=== PATIENT | female | born 1965 ===

== ENCOUNTER 2017-08-28 00:48 | Inpatient (IN) | payer MEDICAID, MEDICARE ==
[2017-08-28 00:48] VITALS: BMI 35.0
[2017-08-28 01:57] LABS: BASO # 0.1 K/uL (0.0-0.2); BASO % 0.4 % (0.0-2.0); EOS # 0.3 K/uL (0.0-0.7); EOS % 1.6 % (0.0-4.0); HEMATOCRIT 43.7 % (34.0-47.0); MEAN CELL VOLUME 97.6 fl (81.0-99.0); MEAN CORPUSCULAR HEMOGLOBIN 32.3 pg (27.0-31.0); MEAN PLATELET VOLUME 7.7 fl (7.2-11.7); MONO # 1.3 K/uL (0.0-0.8); NEUT # 7.7 K/uL (1.8-7.0); WHITE BLOOD COUNT 16.3 K/uL (4.8-10.8)
[2017-08-28 02:03] LABS: ALCOHOL SERUM 215 mg/dl (0-10); ALKALINE PHOSPHATASE 152 U/L (38-126); ALT/SGPT 66 U/L (9-52); AST/SGOT 53 U/L (14-36); BILIRUBIN,TOTAL 0.5 mg/dl (0.2-1.3); BLOOD UREA NITROGEN 15 mg/dl (7-17); CALCIUM 9.3 mg/dL (8.4-10.2); CARBON DIOXIDE 24 mmol/L (22-30); CHLORIDE 99 mmol/L (98-107); GFR AFRICAN-AMERICAN > 60; GLUCOSE,RANDOM 130 mg/dL (65-105); POTASSIUM 3.1 MMOL/L (3.6-5.0); SODIUM 139 mmol/l (132-148); TOTAL PROTEIN 8.4 G/DL (6.3-8.2)
[2017-08-28 02:04] LABS: ALB/GLOB RATIO 1.3 (1.0-2.1)
[2017-08-28 02:06] LABS: PARTIAL THROMBOPLASTIN TIME 28.7 Seconds (25.6-37.1)
--- NOTE | 2017-08-28 02:38 | ED PDOC ---
HPI: Psych/Substance Abuse Time Seen by Provider: 08/28/17 00:51 Chief Complaint (Nursing): Psychiatric Evaluation Chief Complaint (Provider): Depression and Drug Overdose History Per: Patient Onset/Duration Of Symptoms: Hrs (8 hours ago) Current Symptoms Are (Timing): Still Present Additional History Per: EMS Additional Complaint(s): Patient is a 52 y/o female with a past medical history of anxiety, bipolar disorder, depression, and schizophrenia, brought in by EMS, presents to the ED complaining of depression and suicidal ideation, onset of 8 hours ago. According to the EMS, they received a phone call from the patient's boyfriend after witnessing the patient hallucinate about her mother and stating that 'she would like to join her mother". In an effort to accomplish this, the patient reports of drinking approximately 18:30, while taking 5 pills of Tramadol, 5 pills of Trazodone, 6 pills of Abilify, and 6 pills of Clanazepam. Patient denies of any chest pain, nausea, vomiting, shortness of breath, cough, and fever. Of note, the nursing staff informed the provider that the patient attempted to strangle herself with the blood pressure cord shortly after coming to the ED. Past Medical History Reviewed: Historical Data, Nursing Documentation, Vital Signs Vital Signs: Last Vital Signs Temp 98.0 F 08/28/17 01:27 Pulse 121 H 08/28/17 01:27 Resp 16 08/28/17 01:27 BP 131/75 08/28/17 01:27 Pulse Ox 96 08/28/17 01:27 - Medical History PMH: Anxiety, Arthritis, Bipolar Disorder, Depression, Deep Vein Thrombosis, HTN , Hypercholesterolemia, Hyperlipidemia, Chronic Kidney Disease, Schizophrenia Denies: Colonic Polyps, Osteoporosis - Surgical History Surgical History: Endoscopy - Family History Family History: States: No Known Family Hx - Social History Current smoker - smoking cessation education provided: No Ex-Smoker (has not smoked in the last 12 months): No Alcohol: Occasional - Immunization History Hx Tetanus Toxoid Vaccination: Yes (2013) Hx Influenza Vaccination: Yes Hx Pneumococcal Vaccination: Yes - Home Medications Home Medications: Ambulatory Orders Medication Instructions Recorded Atenolol [Tenormin] 25 mg PO DAILY 12/26/16 Celecoxib [Celebrex] 200 mg PO DAILY 12/26/16 Escitalopram [Lexapro] 20 mg PO DAILY 12/26/16 Lisinopril/Hydrochlorothiazide 1 tab PO DAILY 12/26/16 [Lisinopril-Hydrochlorothiazide 25 mg-20 mg] Cyclobenzaprine [Flexeril] 10 mg PO TID 08/28/17 Losartan/Hydrochlorothiazide 1 tab PO DAILY 08/28/17 [Hyzaar 100-12.5 Tablet] Lovastatin [Altoprev] 20 mg PO HS 08/28/17 Naproxen [Naprosyn] 500 mg PO DAILY 08/28/17 Pregabalin [Lyrica] 50 mg PO BID 08/28/17 Valacyclovir HCl [Valtrex] 1 gm PO DAILY 08/28/17 - Allergies Allergies/Adverse Reactions: Allergies Allergy/AdvReac Type Severity Reaction Status Date / Time chocolate flavor Allergy Intermediate SWELLING Verified 08/28/17 01:13 Iodine and Iodide Containing Allergy Intermediate RASH Verified 08/28/17 01:13 Produc shellfish derived Allergy Intermediate RASH Verified 08/28/17 01:13 STRAWBERRIES AdvReac Intermediate SWELLING Uncoded 08/28/17 01:13 Review of Systems ROS Statement: Except As Marked, All Systems Reviewed And Found Negative Constitutional: Negative for: Fever Cardiovascular: Negative for: Chest Pain Respiratory: Negative for: Cough, Shortness of Breath Gastrointestinal: Negative for: Nausea, Vomiting, Diarrhea Neurological: Positive for: Change in Speech (Speech is slurred) Psych: Positive for: Depression, Suicidal ideation Physical Exam - Reviewed Nursing Documentation Reviewed: Yes Vital Signs Reviewed: Yes - Physical Exam Appears: Positive for: Non-toxic, No Acute Distress Head Exam: Positive for: ATRAUMATIC, NORMOCEPHALIC Skin: Positive for: Normal Color, Warm Eye Exam: Positive for: Normal appearance, EOMI, PERRL ENT: Positive for: Normal ENT Inspection Neck: Positive for: Normal, Painless ROM, Supple Cardiovascular/Chest: Positive for: Regular Rate, Rhythm. Negative for: Murmur Respiratory: Positive for: Normal Breath Sounds. Negative for: Respiratory Distress Gastrointestinal/Abdominal: Positive for: Normal Exam, Soft. Negative for: Tenderness Back: Positive for: Normal Inspection Extremity: Positive for: Normal ROM. Negative for: Pedal Edema, Deformity Neurologic/Psych: Positive for: Alert, Oriented, Other (Slurred Speech) - Laboratory Results Result Diagrams: 08/28/17 11:30 08/28/17 11:30 - ECG O2 Sat by Pulse Oximetry: 96 (RA) Pulse Ox Interpretation: Normal - Critical Care Total Time (In Min): 60 Medical Decision Making Medical Decision Making: Time: --01:28 Initial Impression: -- 52 y/o female with Overdose in setting of visual hallucinations with known bipolar disorder and alcohol abuse Initial Plan: --EKG --Drug Screen, Urine --Poison Control Consult --Crisis Evaluation --ED Urine Dipstick --Urine --Haloperidol Lactate 5m IM --lorazepam 2mg IM --Heplock Insertion --1:1 Obs for Suicide Precaution --Accucheck --Urinalysis --Restraint: Violent or harm to self/other Reassess --07:00 Patient to be signed out to Dr. Brown pending crisis evaluation. Scribe Attestation: Documented by Addy Fair acting as a scribe for Kevin Burroughs MD. Provider Attestation: All medical record entries made by the Scribe were at my direction and personally dictated by me. I have reviewed the chart and agree that the record accurately reflects my personal performance of the history, physical exam, medical decision making, and the department course for this patient. I have also personally directed, reviewed, and agree with the discharge instructions and disposition. Disposition - Clinical Impression Clinical Impression: Depression - Patient ED Disposition Is Patient to be Admitted: Transfer of Care - Disposition Disposition: Transfer of Care Disposition Time: 07:00 (Patient to be signed out to Dr. Brown pending crisis evaluation. ) Condition: FAIR
[2017-08-28] MEDS ORDERED: Sodium Chloride 0.9% 1,000 ML IV STA (03:47)
[2017-08-28 05:45] LABS: RBC URINE < 1 /hpf (0-3); URINE BACTERIA RARE (<OCC); URINE BILIRUBIN NEGATIVE (NEGATIVE); URINE BLOOD NEGATIVE (NEGATIVE); URINE COLOR YELLOW (YELLOW); URINE GLUCOSE (UA) NEG (Normal); URINE KETONE NEGATIVE (NEGATIVE); URINE LEUKOCYTE ESTERASE NEG Leu/uL (Negative); URINE PROTEIN NEGATIVE (NEGATIVE); URINE UROBILINOGEN 0.2-1.0 mg/dL (0.2-1.0); WBC URINE < 1 /hpf (0-5)
[2017-08-28] MEDS ORDERED: Potassium Chloride 20 mEq ER Tab PO ONE (07:08)
--- NOTE | 2017-08-28 07:09 | ED PDOC ---
- Laboratory Results Result Diagrams: 08/28/17 11:30 08/28/17 11:30 - ECG O2 Sat by Pulse Oximetry: 96 (RA) Pulse Ox Interpretation: Normal Medical Decision Making Medical Decision Makin:00 Patient signed over from Kevin Burroughs MD to me pending Crisis Evaluation. Scribe Attestation: Documented by Gabriella Slaughter, acting as a scribe for Cortez Brown MD. Medically stable for psychiatric admission Provider Scribe Attestation: All medical record entries made by the Scribe were at my direction and personally dictated by me. I have reviewed the chart and agree that the record accurately reflects my personal performance of the history, physical exam, medical decision making, and the department course for this patient. I have also personally directed, reviewed, and agree with the discharge instructions and disposition. Disposition - Clinical Impression Clinical Impression: Depression - POA Present On Arrival: None - Disposition Disposition: Admitted as In-Patient Disposition Time: 12:13 Condition: FAIR Forms: [employer] ([place]uan)
--- NOTE | 2017-08-28 10:30 | RAD ---
HISTORY: cough COMPARISON: No prior. FINDINGS: LUNGS: No active pulmonary disease. PLEURA: No significant pleural effusion identified, no pneumothorax apparent. CARDIOVASCULAR: Normal. OSSEOUS STRUCTURES: No significant abnormalities. VISUALIZED UPPER ABDOMEN: Normal. OTHER FINDINGS: None. IMPRESSION: No active disease.
[2017-08-28 11:42] LABS: BASO # 0.1 K/uL (0.0-0.2); BASO % 0.8 % (0.0-2.0); EOS # 0.2 K/uL (0.0-0.7); EOS % 2.2 % (0.0-4.0); HEMATOCRIT 40.2 % (34.0-47.0); LYMPH # 2.4 K/uL (1.0-4.3); LYMPH % 24.7 % (20.0-40.0); MEAN CORPUSCULAR HEMOGLOBIN 32.6 pg (27.0-31.0); MEAN CORPUSCULAR HGB CONC 34.2 g/dL (33.0-37.0); MEAN PLATELET VOLUME 7.5 fl (7.2-11.7); MONO # 0.8 K/uL (0.0-0.8); MONO % 7.7 % (0.0-10.0); NEUT # 6.4 K/uL (1.8-7.0); NEUT % 64.6 % (50.0-75.0); NRBC % 0.1 % (0.0-0.0); RED CELL DISTRIBUTION WIDTH 15.1 % (11.5-14.5); WHITE BLOOD COUNT 9.8 K/uL (4.8-10.8)
[2017-08-28 11:47] LABS: MEAN CELL VOLUME 95.3 fl (81.0-99.0)
[2017-08-28 11:56] LABS: ALB/GLOB RATIO 1.3 (1.0-2.1); ALCOHOL SERUM < 10 mg/dl (0-10); ALKALINE PHOSPHATASE 139 U/L (38-126); ALT/SGPT 59 U/L (9-52); AST/SGOT 51 U/L (14-36); BILIRUBIN,TOTAL 0.8 mg/dl (0.2-1.3); BLOOD UREA NITROGEN 11 mg/dl (7-17); CALCIUM 8.8 mg/dL (8.4-10.2); CARBON DIOXIDE 24 mmol/L (22-30); CHLORIDE 103 mmol/L (98-107); GFR AFRICAN-AMERICAN > 60; GLUCOSE,RANDOM 109 mg/dL (65-105); POTASSIUM 3.8 MMOL/L (3.6-5.0); SODIUM 138 mmol/l (132-148); TOTAL PROTEIN 7.5 G/DL (6.3-8.2)
--- NOTE | 2017-08-28 12:43 | CARD ---
APPROVED REPORT EKG Measurement Heart [id number] <Conclusion> Sinus tachycardia Inferior infarct, age undetermined Cannot rule out Anterior infarct, age undetermined Abnormal ECG
--- NOTE | 2017-08-28 12:43 | CARD ---
APPROVED REPORT EKG Measurement Heart [id number] <Conclusion> Normal sinus rhythm Inferior infarct, age undetermined Abnormal ECG
--- NOTE | 2017-08-28 17:36 | PCM.BM ---
<Alida Smith - Last Filed: 08/28/17 17:36> Treatment Plan Problems - Problems identified on initial assessmt Feelings of Worthlessness Date Initiated: 08/28/17 Time Initiated: 17:34 Assessment reference: NA Status: Active Problem 1 Date Initiated: 08/28/17 Time Initiated: 17:33 Assessment reference: NA Status: Active Treatment assets and liabiliti Patient Assests: adapts well, cooperative, insightful, motivated, resourceful, self-reliant, ADL independent, negotiates basic needs Patient Liabilities: financial problems, poor support system, relationship conflicts - Milieu Protocol Maintain good personal hygiene: daily Encourage regular showers, daily Remind patient to perform daily oral care, daily Assist patient to perform ADL's Conduct patient checks and document Observation sheet: 1:1 Maintain personal safety: every shift Educate patient to report safety concerns to staff, every shift Monitor environment for contraband/sharps Medication safety: Monitor for expected outcome, potential side effects: every shift, Assess barriers to learning: every shift, Assess readiness for medication education: every shift <Jared Brice - Last Filed: 08/29/17 17:11> Family Contact Family involvement: Family/SO is involved Family contact: Patient agrees to contact, Family has been contacted by patient , Telephone contact initiated by staff Family contact name: Arnaud Mejias - [phone] Family contacted how many times per week?: 4 Family contact comment: Space Operations Officer spoke to pt's domestic partner who reported "I don't remember" when asked how pt was doing prior to admission. - Outside Agency Agency 1 Care involvment: Not involved Agency contact name: Dr. Kim Cardona Agency contact number: - Goals for Treatment Patient goals for treatment: Pt would like to be switched to medications that resolve her symptoms as she no longer feels she can continue living if the hallucinations do not go away. Patient's family/SO goals for treatment: Pt's significan other, Arnaud Mejias, did not offer any goals for pt's treatment. Discharge/Continuing Care - Education Needs Education Needs: Patient Medication, Patient Diagnosis/Disease Process, Patient Coping Skills, Patient Community resources, Patient Aftercare Safety Plan - Discharge Discharge Criteria: Tolerates medication w/o severe side effects, Free of Suicidal thoughts, Free of paranoid thoughts, Free of agitation, Normal sleep pattern, Reduction of target symptoms Discharge to:: Home, With Family - Treatment Team Participation Discussed with Family/SO: Yes <LeslieMarian - Last Filed: 08/30/17 16:12> Family Contact - Goals for Treatment Patient goals for treatment: Patient to continue stabilization on 3NP through medication management and group/supportive therapy. Patient to be encouraged to attend groups regularly to promote self-awareness, compliance, and improve insight, coping skills and self-esteem. Patient to be provided with referral for appropriate level of aftercare to reduce risk of future hospitalizations and ensure safety in the community. Discharge/Continuing Care - Treatment Team Participation Patient/Family/SO Statement: 08/30/17 16:13 Patient attended tx team this morning and was able to participate in discussions regarding progress on 3NP and tx goals. patient continues to reports auditory/visual hallucinations of her mother and sister. Patient repeatedly stated "I want to go with them and enjoy them." Patient was tearful through-out tx team, stating "I don't want to be here." Patient expressed suicidal ideations, explaining having her blanket wrapped around her on 08/29 and having thoughts of typing it around her neck. Patient wasn't able to contract for safety on 3NP, replying "if i could, i would" when asked if she would attempt to harm herself on 3NP. Patient presents with limited insight. Coping skills/Judgment impaired. Patient unable to identify protective factors without assistance from tx team. Was Patient/Family/SO present at Treatment Team Meeting: No <Boom Stahl - Last Filed: 08/31/17 13:03> Treatment Plan Problems - Problems identified on initial assessmt Feelings of Worthlessness Date Initiated: 08/28/17 Time Initiated: 17:34 Assessment reference: NA Status: Active Problem 1 Date Initiated: 08/28/17 Time Initiated: 17:33 Assessment reference: NA Status: Active Problem 2 Date Initiated: 08/28/17 Time Initiated: 17:33 Assessment reference: NA Status: Active - Diagnosis (1) Depression Status: Acute Interventions: psychotherapy, pharmacotherapy 08/31/17 13:02
[2017-08-28] MEDS ORDERED: Alum-Mag Hydrox-Simethicone Susp (30 mL) PO PRN (18:02)
[2017-08-28] MEDS ORDERED: DiphenhydrAMINE 50 mg/ml Inj IM PRN (18:02)
[2017-08-28] MEDS ORDERED: Magnesium Hydroxide Susp 30 ml UD PO PRN (18:02)
[2017-08-29 02:03] VITALS: O2SAT 96
[2017-08-29 09:26] LABS: T4 12.2 ug/dl (5.5-11.0)
[2017-08-29 09:41] LABS: THYROID STIMULATING HORMONE 2.27 mIU/ML (0.46-4.68)
--- NOTE | 2017-08-29 12:05 | PCM.PSYCH ---
Initial Psychiatric Evaluation - Initial Psychiatric Evaluation Type of Admission: Voluntary Chief Complaint (in patient's own words): i was suicidal Patient's Reaction to Hospitalization: pt is upset History of Present Illness and Precipitating Events: This is a 52 yr old female with h/o depression and psychosis and has h/o multiple suicidal atempts and admitted for severe depression and overdose on trazodone and tylenol.pt says that she misses her mother and sister very much and hearing the voices of mother and sister telling her to join them Current Medications: Active Medications Generic Name Dose Route Start Last Admin Trade Name Freq PRN Reason Stop Dose Admin Acetaminophen 650 mg 08/28/17 18:02 08/28/17 19:53 Tylenol 325mg Tab PO 650 mg Q4 PRN Administration Pain, moderate (4-7) Al Hydrox/Mg Hydrox/Simethicone 30 ml 08/28/17 18:02 Maalox Plus 30 Ml PO Q4 PRN Dyspepsia Diphenhydramine HCl 50 mg 08/28/17 18:02 Benadryl IM Q6 PRN Extrapyramidal S/S Unable PO Diphenhydramine HCl 50 mg 08/28/17 18:02 08/29/17 08:08 Benadryl PO 50 mg Q6 PRN Administration Extrapyramidal Symptoms Haloperidol 5 mg 08/28/17 18:02 08/29/17 08:08 Haldol PO 5 mg Q4 PRN Administration Agitation Haloperidol Lactate 5 mg 08/28/17 18:02 Haldol IM Q4 PRN Agitation, Unable to Take PO Ibuprofen 400 mg 08/28/17 19:37 08/28/17 21:46 Motrin Tab PO 400 mg Q6 PRN Administration Pain, moderate (4-7) Lorazepam 2 mg 08/28/17 18:02 08/29/17 08:08 Ativan PO 2 mg Q4 PRN Administration Anxiety/Agitation Magnesium Hydroxide 30 ml 08/28/17 18:02 Milk Of Magnesia PO HS PRN Constipation Past Psychiatric History - Past Psychiatric History Previous Treatment History: Inpatient At [facility]: multiple admissions because of overdose on pills Nature of Treatment: for depresion History of Abuse: pt denies History of ETOH/Drug Use: pt drinks occasionally History of Family Illness: pt denies Pertinent Medical Hx (Current Medical&Sleep Prob, Allergies): Allergies Allergy/AdvReac Type Severity Reaction Status Date / Time chocolate flavor Allergy Intermediate SWELLING Verified 08/28/17 01:13 Iodine and Iodide Containing Allergy Intermediate RASH Verified 08/28/17 01:13 Produc shellfish derived Allergy Intermediate RASH Verified 08/28/17 01:13 STRAWBERRIES AdvReac Intermediate SWELLING Uncoded 08/28/17 01:13 Atenolol [Tenormin] 25 mg PO DAILY 12/26/16 Celecoxib [Celebrex] 200 mg PO DAILY 12/26/16 Escitalopram [Lexapro] 20 mg PO DAILY 12/26/16 Lisinopril/Hydrochlorothiazide [Lisinopril-Hydrochlorothiazide 25 mg-20 mg] 1 tab PO DAILY 12/26/16 Cyclobenzaprine [Flexeril] 10 mg PO TID 08/28/17 Losartan/Hydrochlorothiazide [Hyzaar 100-12.5 Tablet] 1 tab PO DAILY 08/28/17 Lovastatin [Altoprev] 20 mg PO HS 08/28/17 Naproxen [Naprosyn] 500 mg PO DAILY 08/28/17 Pregabalin [Lyrica] 50 mg PO BID 08/28/17 Valacyclovir HCl [Valtrex] 1 gm PO DAILY 08/28/17 pt has h/o HTN,,,skin fungus infection Review of Systems - Review of Systems All systems: reviewed and no additional remarkable complaints except Mental Status Examination - Personal Presentation Personal Presentation: Looks stated age - Affect Affect: Constricted - Motor Activity Motor Activity: Calm - Reliability in Providing Information Reliability in Providing Information: Fair - Cognitive Functions Orientation: Person, Place, Situation, Time Sensorium: Alert Attention/Concentration: Easily distracted Abstract Thinking: As evidence by literal perception of proverbs Estimate of Intelligence: Average Judgement: Imparied, as evidence by: Poor judgement, Imparied, as evidence by: Lack of insight into illness Memory: Recent intact, as evidence by: Ability to recall events of the day, Remote intact, as evidenced by: Ability to recall historical events - Risk Risk: Suicidal, Diminished functioning - Strength & Assets Inventory Strength & Assets Inventory: Family support DSM 5 DX - DSM 5 DSM 5 Diagnosis: major depression,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 will maintain pt on 1:1 observation medical consult for follow up on pain issues and other medical problems
--- NOTE | 2017-08-29 12:33 | CP.PCM.CON ---
History of Present Illness - History of Present Illness History of Present Illness: cc: Patient medicated after agitation, unable to participate in interview/exam. HPI: PATIENT 52 YEAR OLD FEMALE, ADMITTED FOR SEVERE DEPRESSION AND SUICIDE ATTEMPT. OVERDOSE TRAZODONE AND TYLENOL. HD STABLE. ROS: UNABLE TO OBTAIN, MEDICATION Past Patient History - Infectious Disease Hx of Infectious Diseases: None - Past Medical History & Family History Past Medical History?: Yes - Past Social History Alcohol: Occasional - CARDIAC Hx Hypercholesterolemia: Yes Hx Hypertension: Yes - PULMONARY Hx Respiratory Disorders: No Hx Tuberculosis: No - NEUROLOGICAL Hx Neurological Disorder: No HX Cerebrovascular Accident: No Hx Seizures: No - HEENT Hx HEENT Problems: Yes Other/Comment: INFECTION EYELID LEFT EYE; ON ANTIBIOTIC CREAM AND DROPS. - RENAL Hx Chronic Kidney Disease: Yes - ENDOCRINE/METABOLIC Hx Endocrine Disorders: No - HEMATOLOGICAL/ONCOLOGICAL Hx Blood Disorders: No Hx Cancer: No Hx Human Immunodeficiency Virus (HIV): No - INTEGUMENTARY Hx Dermatological Problems: Yes Other/Comment: FUNGAL INFECTION SUPRAPUBIC AND UNDER BOTH BREASTS; ON NYSTATIN CREAM. - MUSCULOSKELETAL/RHEUMATOLOGICAL Hx Arthritis: Yes Hx Osteoporosis: No - GASTROINTESTINAL Hx Gastrointestinal Disorders: No - GENITOURINARY/GYNECOLOGICAL Hx Genitourinary Disorders: No Hx Sexually Transmitted Disorders: No - PSYCHIATRIC Hx Anxiety: Yes Hx Bipolar Disorder: Yes Hx Depression: Yes Hx Schizophrenia: Yes - SURGICAL HISTORY Hx Surgeries: Yes Other/Comment: r and l hip surgery, 2010 and - ANESTHESIA Hx Anesthesia: Yes Hx Anesthesia Reactions: No Hx Malignant Hyperthermia: No Meds Allergies/Adverse Reactions: Allergies Allergy/AdvReac Type Severity Reaction Status Date / Time chocolate flavor Allergy Intermediate SWELLING Verified 08/28/17 01:13 Iodine and Iodide Containing Allergy Intermediate RASH Verified 08/28/17 01:13 Produc shellfish derived Allergy Intermediate RASH Verified 08/28/17 01:13 STRAWBERRIES AdvReac Intermediate SWELLING Uncoded 08/28/17 01:13 - Medications Medications: Current Medications Acetaminophen (Tylenol 325mg Tab) 650 mg PO Q4 PRN PRN Reason: Pain, moderate (4-7) Last Admin: 08/28/17 19:53 Dose: 650 mg Al Hydrox/Mg Hydrox/Simethicone (Maalox Plus 30 Ml) 30 ml PO Q4 PRN PRN Reason: Dyspepsia Aripiprazole (Abilify) 5 mg PO DAILY SITA Diphenhydramine HCl (Benadryl) 50 mg IM Q6 PRN PRN Reason: Extrapyramidal S/S Unable PO Diphenhydramine HCl (Benadryl) 50 mg PO Q6 PRN PRN Reason: Extrapyramidal Symptoms Last Admin: 08/29/17 08:08 Dose: 50 mg Fluoxetine HCl (Prozac) 10 mg PO HS SITA Haloperidol (Haldol) 5 mg PO Q4 PRN PRN Reason: Agitation Last Admin: 08/29/17 08:08 Dose: 5 mg Haloperidol Lactate (Haldol) 5 mg IM Q4 PRN PRN Reason: Agitation, Unable to Take PO Ibuprofen (Motrin Tab) 400 mg PO Q6 PRN PRN Reason: Pain, moderate (4-7) Last Admin: 08/28/17 21:46 Dose: 400 mg Lorazepam (Ativan) 2 mg PO Q4 PRN PRN Reason: Anxiety/Agitation Last Admin: 08/29/17 08:08 Dose: 2 mg Magnesium Hydroxide (Milk Of Magnesia) 30 ml PO HS PRN PRN Reason: Constipation Physical Exam - Constitutional Additional comments: pt sedated, unable to obtain consent for physical exam. Results - Vital Signs Recent Vital Signs: Last Vital Signs Temp 96.3 F L 08/29/17 10:00 Pulse 91 H 08/29/17 10:00 Resp 20 08/29/17 10:00 BP 144/94 H 08/29/17 10:00 Pulse Ox 96 08/29/17 02:03 - Labs Result Diagrams: 08/28/17 11:30 08/28/17 11:30 Labs: Laboratory Results - last 24 hr 08/29/17 08:00 Triglycerides 261 H Cholesterol 205 H LDL Cholesterol Direct 114 HDL Cholesterol 58 Thyroxine (T4) 12.2 H TSH 3rd Generation 2.27 Assessment & Plan - Assessment and Plan (Free Text) Plan: Chart reviewed. Will continue home medications for hypertension. Per nursing staff, patient has not complained of any chest pain. EKG borderline QTc, recommend avoiding medications causing QT prolongation, including haldol, zofran. BORDERLINE QTc EKG borderline QTc, recommend avoiding medications causing QT prolongation, including haldol, zofran. HTN continue home meds DEPRESSION SUICIDE ATTEMPT management per psych
[2017-08-29] MEDS ORDERED: FLUoxetine Elix 20 MG/5 ML PO SCH (22:00)
[2017-08-30] MEDS: guaiFENesin 100 mg/5 ml Syrup UD PO PRN ×2 (10:49→21:20)
--- NOTE | 2017-08-30 14:56 | PCM.PYCHPN ---
Psychiatric Progress Note - Psychiatric Progress Note Patient seen today, length of contact: pt evaluated discussed with team chart reviewed Patient Chief Complaint: i miss my mother and sister Problems Identified/Issues Discussed: pt on evaluation tearful,sad depressed, reported continues to have visions of her mother and sister and feels she needs to join them, pt continues to have passive suicidal ideations without a plan on the unit , reported feeling hopeless and helpless recently diagnosed with cancer reported feeling anxious denied homicidal ideations denied command hallucinations Medical Problems: htn ,hyperglycemia pt reported recent diagnosis with rectal cancer DSM 5 Symptoms Update: major depression borderline persoality disorder Medication Change: Yes (increase prazac) Medical Record Reviewed: Yes Mental Status Examination - Cognitive Function Orientation: Person, Place, Situation, Time Attention: Poor Concentration: Poor Association: WNL Fund of Knowledge: Poor Decription of patient's judgement and insights: partial insight poor judgement and poor impulse control - Affect Affect: Constricted, Depressed Additional comments: terful - Speech Speech: Soft - Formal Thought Process Formal Thought Process: Hallucinations Psychotic Thoughts and Behaviors: reported non command auditory and visual hallucinations of her mother and sister - Suicidal Ideation Suicidal Ideation: No - Homicidal Ideation Homicidal Ideation: No Goal/Treatment Plan - Goal/Treatment Plan Progress Toward Problem(s) and Goals/Treatment Plan: increase prozac gradually abilify 5mg trazodone 50mg qhs ativan prn for anxiety CBT and group therapy opt at current mental status denied any suicidal ideations or plan on the unit denied command hallucinations will discontinue 1:1 observation at pt denied any suicidal thoughts or plans at current mental status
[2017-08-31] MEDS ORDERED: FLUoxetine Elix 20 MG/5 ML PO SCH (09:00)
[2017-08-31] MEDS: guaiFENesin 100 mg/5 ml Syrup UD PO PRN ×2 (10:29→16:51)
--- NOTE | 2017-08-31 13:19 | PCM.PYCHPN ---
Psychiatric Progress Note - Psychiatric Progress Note Patient seen today, length of contact: pt evaluated discussed with team chart reviewed Patient Chief Complaint: I need more therapy, i need to talk it out to feel better Problems Identified/Issues Discussed: pt on evaluation reported continues to feel down as she feels lonely with out her family, continues to see shadows of her mother and sister , pt reported that attending groups helped her to let out her emotions, pt continues to have passive suicidal ideations, without plan on the unit, reported better sleep with trazodone, denied command hallucinations, denied changes in appetite, no reported side effects of medications Medical Problems: htn ,hyperglycemia pt reported recent diagnosis with rectal cancer DSM 5 Symptoms Update: major depression severe with psychotic features borderline personality disorder Medication Change: Yes (increase prazac) Medical Record Reviewed: Yes Mental Status Examination - Cognitive Function Orientation: Person, Place, Situation, Time Attention: WNL Concentration: WNL Association: WNL Fund of Knowledge: Poor Decription of patient's judgement and insights: partial insight poor judgement and poor impulse control - Mood Mood: Depressed, Anxious - Affect Affect: Constricted, Depressed - Speech Speech: Soft - Formal Thought Process Formal Thought Process: Hallucinations, Circumstantial Psychotic Thoughts and Behaviors: reported non command auditory and visual hallucinations of her mother and sister - Suicidal Ideation Suicidal Ideation: No - Homicidal Ideation Homicidal Ideation: No Goal/Treatment Plan - Goal/Treatment Plan Need for Continued Stay: Severe depression anxiety, Discharge may exacerbated symptoms Progress Toward Problem(s) and Goals/Treatment Plan: increase prozac gradually abilify 5mg trazodone 50mg qhs ativan prn for anxiety CBT and group therapy
[2017-09-01] MEDS: guaiFENesin 100 mg/5 ml Syrup UD PO PRN ×3 (09:16→18:32)
--- NOTE | 2017-09-01 18:17 | PCM.PYCHPN ---
Psychiatric Progress Note - Psychiatric Progress Note Patient seen today, length of contact: pt evaluated discussed with team chart reviewed Patient Chief Complaint: I AM FEELING BETTER Problems Identified/Issues Discussed: pt on evaluation reported LESS DEPRESSED AND LESS ANXIOUS, STATED IMPROVED SLEEP HELPED HER MOOD, BRIGHTER AFFECT DENIED SIDE EFFECTS OF MEDICATIONS, REPORTED CLEARING OFF OF THE VISUAL AND AUDITORY HALLUCIANTIONSATTENDING GROUPS DENIED ANY CURRENT SUICIDAL AND HOMICIDAL IDEATIONS Medical Problems: htn ,hyperglycemia pt reported recent diagnosis with rectal cancer Medication Change: Yes (increase prazac) Medical Record Reviewed: Yes Mental Status Examination - Cognitive Function Orientation: Person, Place, Situation, Time Attention: WNL Concentration: WNL Association: WNL Fund of Knowledge: Poor Decription of patient's judgement and insights: partial insight poor judgement and poor impulse control - Mood Mood: Depressed, Anxious - Affect Affect: Constricted, Depressed - Speech Speech: Soft - Formal Thought Process Formal Thought Process: Circumstantial Psychotic Thoughts and Behaviors: reported CLEARING OFF OF THE auditory and visual hallucinations - Suicidal Ideation Suicidal Ideation: No - Homicidal Ideation Homicidal Ideation: No Goal/Treatment Plan - Goal/Treatment Plan Need for Continued Stay: Severe depression anxiety, Discharge may exacerbated symptoms Progress Toward Problem(s) and Goals/Treatment Plan: increase prozac gradually abilify 5mg trazodone 50mg qhs ativan prn for anxiety CBT and group therapy Estimated Date of D/C: 09/06/17
[2017-09-02] MEDS: guaiFENesin 100 mg/5 ml Syrup UD PO PRN (05:28)
--- NOTE | 2017-09-02 17:54 | PCM.PYCHPN ---
Psychiatric Progress Note - Psychiatric Progress Note Patient seen today, length of contact: pt evaluated discussed with team chart reviewed Patient Chief Complaint: I am ready to work on my problems Problems Identified/Issues Discussed: PATIENT EVALUATED , APPEARS LESS DEPRESSED AND LESS ANXIOUS, STATED IMPROVED SLEEP , BRIGHTER AFFECT DENIED SIDE EFFECTS OF MEDICATIONS, REPORTED CLEARING OFF OF THE VISUAL AND AUDITORY HALLUCIANTIONS ATTENDING GROUPS DENIED ANY CURRENT SUICIDAL AND HOMICIDAL IDEATIONS NO REPORTED SIDE EFFECTS OF MEDICATIONS Medical Problems: htn ,hyperglycemia pt reported recent diagnosis with rectal cancer Medication Change: No (increase prazac) Medical Record Reviewed: Yes Mental Status Examination - Cognitive Function Orientation: Person, Place, Situation, Time Attention: WNL Concentration: WNL Association: WNL Fund of Knowledge: Poor Decription of patient's judgement and insights: partial insight poor judgement and poor impulse control - Mood Mood: Neutral - Affect Affect: Constricted, Depressed - Speech Speech: Soft - Formal Thought Process Formal Thought Process: Circumstantial Psychotic Thoughts and Behaviors: reported CLEARING OFF OF THE auditory and visual hallucinations - Suicidal Ideation Suicidal Ideation: No - Homicidal Ideation Homicidal Ideation: No Goal/Treatment Plan - Goal/Treatment Plan Need for Continued Stay: Severe depression anxiety, Discharge may exacerbated symptoms Progress Toward Problem(s) and Goals/Treatment Plan: continue prozac 40mg abilify 5mg trazodone 50mg qhs ativan prn for anxiety CBT and group therapy Estimated Date of D/C: 09/06/17
[2017-09-03] MEDS: guaiFENesin 100 mg/5 ml Syrup UD PO PRN (03:07)
[2017-09-03 09:41] VITALS: BP 133/87; PULSE 87
[2017-09-03 12:03] VITALS: RESP 18; TEMP 97.7
--- NOTE | 2017-09-03 15:26 | PCM.PYCHDC ---
Mental Status Examination - Mental Status Examination Orientation: Person, Place, Situation, Time Memory: Intact Mood: Neutral Affect: Broad Speech: Appropriate Attention: WNL Concentration: WNL Association: WNL Fund of Knowledge: WNL Formal Thought Process: No Impairment Description of patient's judgement and insight: partial insight poor judgement and poor impulse control Psychotic Thoughts and Behaviors: pt denied any current psychotic symptoms , non ellicited Suicidal Ideation: No Current Homicidal Ideation?: No Discharge Summary - Discharge Note Reason for Hospitalization: This is a 52 yr old female with h/o depression and psychosis and has h/o multiple suicidal atempts and admitted for severe depression and overdose on trazodone and tylenol.pt says that she misses her mother and sister very much and hearing the voices of mother and sister telling her to join them Psychiatric History (includes Medical, Family, Personal Hx): for depresion Consultations:: List each consultation separately and include: 1. Reason for request. 2. Findings. 3. Follow-up Consultations: family practice Summary of Hospital Course include:: 1. Description of specific treatment plan utilized for patients during their course of treatmen. 2. Summarize the time- course for resolution of acute symptoms and/or regressed behaviors. 3. Describe issues identified and worked on during hospitalization. 4. Describe medication utilized. 5. Describe medical problems identified and treated. 6. Reassessment of suicide risk Summary of Hospital Course: pt on admission was started on prozac 10mg was uptitrated to 40mg, abilify 2mg was uptitrated to 5mg trazodone 50mg qhs for sleep CBT , group and supportive therapy was provided pt was compliant with medications, attended groups, no reported side effects on discharge mental status was stable. pt denied any suicidal or homicidal ideations denied perceptual disturbances pt to follow up at outpatient clinic - Diagnosis (1) Depression Status: Acute - Final Diagnosis (DSM 5) Condition upon Discharge: FAIR Disposition: HOME/ ROUTINE Follow-up Treatment Plan: continue prozac 40mg abilify 5mg trazodone 50mg qhs ativan prn for anxiety CBT and group therapy Prescriptions/Medication Reconciliation: ARIPiprazole [Abilify] 5 mg PO DAILY 30 Days #30 tab FLUoxetine [Prozac] 20 mg PO DAILY 30 Days #60 cap hydrOXYzine Pamoate [Vistaril] 50 mg PO HS PRN 30 Days #30 cap PRN Reason: Insomnia traZODone [Desyrel] 50 mg PO HS 30 Days #30 tab - Antipsychotic Medications Pt discharged on 2 or more routine antipsychotic medications: No
== END 2017-09-03 13:11 | disposition home or self-care (01) | DRG 885 ==
LOC: H.ER 00:48 → H.ERHOLD 12:12 → H.PSYCH 16:05
PROVIDERS: ADMIT Psychiatry & Neurology Psychiatry; ATTEND Psychiatry & Neurology Psychiatry
DX: F32.3 Major depressive disorder, single episode, severe with psychotic features (principal); R45.851 Suicidal ideations; F10.10 Alcohol abuse, uncomplicated; F60.3 Borderline personality disorder; F41.9 Anxiety disorder, unspecified

== ENCOUNTER 2017-10-21 20:14 | Inpatient (IN) | payer MEDICARE, OTHER ==
[2017-10-21 20:15] VITALS: BMI 35.0
--- NOTE | 2017-10-21 21:34 | ED PDOC ---
HPI: Psych/Substance Abuse Time Seen by Provider: 10/21/17 20:35 Chief Complaint (Nursing): Psychiatric Evaluation Chief Complaint (Provider): Suicidal Ideation and Hallucination History Per: Patient History/Exam Limitations: no limitations Onset/Duration Of Symptoms: Days (couple of days) Additional Complaint(s): Shonda Bundy, a 52 year old female presents to the Emergency Department with suicidal ideation and hallucination complaining she sees and hears her parents. Reports she wants to kill herself so she can be with her parents. She has a history of suicidal attempts and has stopped taking her medications. PMD:Myles Ramon Past Medical History Reviewed: Historical Data, Nursing Documentation, Vital Signs Vital Signs: Last Vital Signs Temp 98.6 F 10/21/17 20:24 Pulse 107 H 10/21/17 20:24 Resp 18 10/21/17 20:24 BP 153/83 H 10/21/17 20:24 Pulse Ox 98 10/21/17 20:24 - Medical History PMH: Anxiety, Arthritis, Bipolar Disorder, Depression, Deep Vein Thrombosis, HTN , Hypercholesterolemia, Hyperlipidemia, Chronic Kidney Disease, Schizophrenia Denies: Colonic Polyps, Diabetes, Hepatitis, HIV, Osteoporosis, Seizures, Sexually Transmitted Disease - Surgical History Surgical History: Endoscopy Other surgeries: bilateral hip replacement, fallopian tube - Family History Family History: States: Unknown Family Hx - Social History Alcohol: Social Drugs: Denies - Immunization History Hx Tetanus Toxoid Vaccination: Yes (2013) Hx Influenza Vaccination: Yes Hx Pneumococcal Vaccination: Yes - Home Medications Home Medications: Ambulatory Orders Medication Instructions Recorded Atenolol [Tenormin] 25 mg PO DAILY 12/26/16 Celecoxib [Celebrex] 200 mg PO DAILY 12/26/16 Escitalopram [Lexapro] 20 mg PO DAILY 12/26/16 Lisinopril/Hydrochlorothiazide 1 tab PO DAILY 12/26/16 [Lisinopril-Hydrochlorothiazide 25 mg-20 mg] Cyclobenzaprine [Flexeril] 10 mg PO TID 08/28/17 Losartan/Hydrochlorothiazide 1 tab PO DAILY 08/28/17 [Hyzaar 100-12.5 Tablet] Lovastatin [Altoprev] 20 mg PO HS 08/28/17 Naproxen [Naprosyn] 500 mg PO DAILY 08/28/17 Pregabalin [Lyrica] 50 mg PO BID 08/28/17 Valacyclovir HCl [Valtrex] 1 gm PO DAILY 08/28/17 ARIPiprazole [Abilify] 5 mg PO DAILY 30 Days #30 tab 09/03/17 Atenolol [Tenormin] 25 mg PO DAILY tab 09/03/17 FLUoxetine [Prozac] 20 mg PO DAILY 30 Days #60 cap 09/03/17 Losartan [Cozaar] 100 mg PO DAILY tab 09/03/17 guaiFENesin [Robitussin] 100 mg PO Q6 PRN udc 09/03/17 hydrOXYzine Pamoate [Vistaril] 50 mg PO HS PRN 30 Days #30 cap 09/03/17 hydroCHLOROthiazide [Hydrodiuril] 25 mg PO DAILY tab 09/03/17 traZODone [Desyrel] 50 mg PO HS 30 Days #30 tab 09/03/17 - Allergies Allergies/Adverse Reactions: Allergies Allergy/AdvReac Type Severity Reaction Status Date / Time chocolate flavor Allergy Intermediate SWELLING Verified 08/28/17 01:13 Iodine and Iodide Containing Allergy Intermediate RASH Verified 08/28/17 01:13 Produc shellfish derived Allergy Intermediate RASH Verified 08/28/17 01:13 STRAWBERRIES AdvReac Intermediate SWELLING Uncoded 08/28/17 01:13 Review of Systems ROS Statement: Except As Marked, All Systems Reviewed And Found Negative Neurological: Positive for: Altered Mental Status, Other (agitated and tearful) Psych: Positive for: Suicidal ideation, Other (hallucination) Physical Exam - Reviewed Vital Signs Reviewed: Yes - Physical Exam Appears: Positive for: Non-toxic, No Acute Distress Head Exam: Positive for: ATRAUMATIC, NORMAL INSPECTION, NORMOCEPHALIC Skin: Positive for: Normal Color, Warm, Dry Eye Exam: Positive for: Normal appearance, EOMI, PERRL ENT: Positive for: Normal ENT Inspection Neck: Positive for: Normal Cardiovascular/Chest: Positive for: Regular Rate, Rhythm. Negative for: Murmur Respiratory: Positive for: Normal Breath Sounds. Negative for: Respiratory Distress Gastrointestinal/Abdominal: Positive for: Normal Exam, Soft. Negative for: Tenderness Back: Positive for: Normal Inspection. Negative for: L CVA Tenderness, R CVA Tenderness Extremity: Positive for: Normal ROM. Negative for: Pedal Edema, Deformity Neurologic/Psych: Positive for: Alert, Oriented (x3) - Laboratory Results Result Diagrams: 10/21/17 22:09 10/21/17 22:09 - ECG O2 Sat by Pulse Oximetry: 98 (RA) Pulse Ox Interpretation: Normal Medical Decision Making Medical Decision Making: Time: 20:50 Initial Impression: Psychosis, Alcoholic Intoxication Differential Diagnosis includes but is not limited to: Medical clearance and crisis evaluation Initial Plan: --Acetaminophen --Alcohol serum --BMP --Drug Screen --Salicylate --Crisis Evaluation --Urine --Urine Dipstick --CBC --Haldol 5mg IM --Reevaluation Vital signs are stable. Labs reviewed. In my opinion there are no current acute medical conditions that contraindicate the placement of this patient in a psychiatric unit. Patient is accepted by Dr Stahl for admission. Scribe Attestation: Documented by Juliana Gardner, acting as a scribe for Layne Vidal MD Provider Scribe Attestation: All medical record entries made by the Scribe were at my direction and personally dictated by me. I have reviewed the chart and agree that the record accurately reflects my personal performance of the history, physical exam, medical decision making, and the department course for this patient. I have also personally directed, reviewed, and agree with the discharge instructions and disposition. Disposition - Clinical Impression Clinical Impression: Depression, Alcohol abuse - Patient ED Disposition Is Patient to be Admitted: Yes Counseled Patient/Family Regarding: Studies Performed, Diagnosis - Disposition Disposition Time: 22:50 Condition: FAIR - Pt Status Changed To: Hospital Disposition Of: Inpatient - Admit Certification Admit to Inpatient:: After my assessment, the patient will require hospitalization for at least two midnights. This is because of the severity of symptoms shown, intensity of services needed, and/or the medical risk in this patient being treated as an outpatient. - POA Present On Arrival: None
[2017-10-21 22:18] LABS: BASO # 0.1 K/uL (0.0-0.2); BASO % 0.7 % (0.0-2.0); EOS # 0.1 K/uL (0.0-0.7); EOS % 0.8 % (0.0-4.0); HEMOGLOBIN 12.4 g/dL (12.0-16.0); LYMPH # 3.1 K/uL (1.0-4.3); LYMPH % 26.2 % (20.0-40.0); MEAN CELL VOLUME 94.9 fl (81.0-99.0); MEAN CORPUSCULAR HEMOGLOBIN 31.9 pg (27.0-31.0); MEAN CORPUSCULAR HGB CONC 33.7 g/dL (33.0-37.0); MEAN PLATELET VOLUME 6.8 fl (7.2-11.7); MONO # 0.3 K/uL (0.0-0.8); MONO % 2.6 % (0.0-10.0); NEUT # 8.4 K/uL (1.8-7.0); NEUT % 69.7 % (50.0-75.0); RBC 3.87 Mil/uL (3.80-5.20); RED CELL DISTRIBUTION WIDTH 15.1 % (11.5-14.5)
[2017-10-21 22:33] LABS: ACETAMINOPHEN < 10.0 ug/ml (10.0-30.0); SALICYLATE < 1.0 mg/dl
[2017-10-21 22:42] LABS: BLOOD UREA NITROGEN 9 mg/dl (7-17); CALCIUM 9.3 mg/dL (8.4-10.2); GFR AFRICAN-AMERICAN > 60; GFR NON-AFRICAN AMERICAN > 60
[2017-10-21 22:59] LABS: BARBITURATES, UR NEGATIVE (NEGATIVE); BENZODIAZEPINES, UR NEGATIVE (NEGATIVE); OPIATES, UR NEGATIVE (NEGATIVE); PHENCYCLIDINE, UR NEGATIVE (NEGATIVE)
[2017-10-22 01:24] VITALS: O2SAT 97
[2017-10-22] MEDS ORDERED: Magnesium Hydroxide Susp 30 ml UD PO PRN (02:05)
[2017-10-22] MEDS ORDERED: DiphenhydrAMINE 50 mg/ml Inj IM PRN (02:05)
--- NOTE | 2017-10-22 02:26 | PCM.BM ---
Treatment Plan Problems - Problems identified on initial assessmt Hopelessness/Helplessness Date Initiated: 10/22/17 Time Initiated: 02:24 Assessment reference: NA Status: Active Treatment assets and liabiliti Patient Assests: adapts well, cooperative, insightful, motivated, resourceful, self-reliant, ADL independent, negotiates basic needs Patient Liabilities: physical pain, poor support system - Milieu Protocol Maintain good personal hygiene: daily Remind patient to perform daily oral care , every other day Encourage regular showers Conduct patient checks and document Observation sheet: Q15 minutes Maintain personal safety: every shift Educate patient to report safety concerns to staff, every shift Monitor environment for contraband/sharps Medication safety: Monitor for expected outcome, potential side effects: every shift, Assess barriers to learning: every shift, Assess readiness for medication education: every shift
--- NOTE | 2017-10-22 02:30 | PCM.BM ---
<Arun Salazar - Last Filed: 10/22/17 02:27> Treatment Plan Problems - Problems identified on initial assessmt Hopelessness/Helplessness Date Initiated: 10/22/17 Time Initiated: 02:29 Assessment reference: NA Status: Active Problem 2 Date Initiated: 10/22/17 Time Initiated: 02:28 Assessment reference: NA Status: Active Treatment assets and liabiliti Patient Assests: adapts well, cooperative, insightful, motivated, resourceful, self-reliant, ADL independent, negotiates basic needs Patient Liabilities: physical pain, poor support system, dietary restrictions - Milieu Protocol Maintain good personal hygiene: daily Remind patient to perform daily oral care , every other day Encourage regular showers Conduct patient checks and document Observation sheet: Q15 minutes Maintain personal safety: every shift Educate patient to report safety concerns to staff, every shift Monitor environment for contraband/sharps Medication safety: Monitor for expected outcome, potential side effects: every shift, Assess barriers to learning: every shift, Assess readiness for medication education: every shift <Marian Nelson - Last Filed: 10/25/17 13:56> Treatment assets and liabiliti Patient Assests: adapts well, cooperative, resourceful, self-reliant, ADL independent, good support system, negotiates basic needs, good past tx response , cognitively intact Patient Liabilities: relationship conflicts (recent losses) Discharge/Continuing Care - Treatment Team Participation Patient/Family/SO Statement: 10/25/17 13:57 Patient attended tx team this morning and was able to engage in discussion regarding progress on 3NP and aftercare. Patient presents as depressed and anxious. Patient continues to report AH/VH of sister and mother telling patient "to come be with them" and telling patient "she will be in a better place". Patient states "my sister is coming back tonight to tell me how I can be with her again." Patient expressed feeling dismissed by night staffs response to patient reporting AH/VH, stating "he just told me that no one is really there and told me to go to bed." Validation and support provided by tx team. Patient receptive to reality testing but became increasingly tearful when discussing missing her sister and being afraid of losing her elderly father. Patient reported passive thoughts to use hospital bed sheets as a way to harm herself earlier this morning. Patient was able to express being able to speak to staff about symptoms and ideations but remained vague regarding ability to contract for safety. Benefits of patient being placed on a 1:1 discussed with tx team. Patient placed on a 1:1 following tx team. Rubber Printing Machine Operator discussed benefits of referrals to PHP upon discharge to provide patient with structure, increase socialization, ensure safety in the community and reduce risk of future hospitalizations. Patient agreeable. 10/25/17 14:04 <Jared Brice - Last Filed: 10/26/17 08:24> Family Contact Family involvement: Family/SO is involved Family contact: Patient agrees to contact, Family has been contacted by patient , Telephone contact initiated by staff Family contact name: Arnaud Mejias (Significant Other) Family contacted how many times per week?: 3 Family contact comment: Rubber Printing Machine Operator spoke with pt's significant other, Arnaud Mejias ([phone]), to gain collateral and discuss pt's progress. Rubber Printing Machine Operator tried to expalin that pt appeared brighter, more motivated, and attending better to her ADL's, yet Arnaud and could not communicate due to a language barrier. Rubber Printing Machine Operator will endorse this to another clinician who can communite in [place]. - Goals for Treatment Patient goals for treatment: Pt is anxious about her supplemental insurance plan , [employer], as it does not become effective until 11/04/17. However, pt appears motivated that once this becomes active she will be able to obtain her medications and receive outpatient treament to process her thoughts and feelings and more thoroughly process the complicated grief she feels about her mother and sister. Discharge/Continuing Care - Education Needs Education Needs: Family Medication, Family Diagnosis/Disease Process, Family Coping Skills, Family Aftercare Safety Plan, Patient Medication, Patient Diagnosis/Disease Process, Patient Coping Skills, Patient Aftercare Safety Plan - Discharge Discharge Criteria: Tolerates medication w/o severe side effects, Free of Suicidal thoughts, Free of agitation, Normal sleep pattern, Reduction of target symptoms Discharge to:: Home, With Family - Treatment Team Participation Discussed with Family/SO: Yes Was Patient/Family/SO present at Treatment Team Meeting: Yes <Boom Stahl - Last Filed: 10/26/17 11:27> - Diagnosis (1) Depression Status: Acute Interventions: 10/25/17 12:33 PSYCHOTHERAPY PHARMACOTHERAPY
[2017-10-22 08:53] LABS: T4 10.5 ug/dl (5.5-11.0)
[2017-10-22] MEDS: Alum-Mag Hydrox-Simethicone Susp (30 mL) PO PRN (09:54)
--- NOTE | 2017-10-22 11:19 | CARD ---
APPROVED REPORT EKG Measurement Heart [id number] <Conclusion> Normal sinus rhythm Normal ECG
--- NOTE | 2017-10-22 14:47 | PCM.PSYCH ---
Initial Psychiatric Evaluation - Initial Psychiatric Evaluation Type of Admission: Voluntary Legal Status: Capacity Chief Complaint (in patient's own words): I did not have my medicine and I started having suicidal thoughts Patient's Reaction to Hospitalization: pt requested help History of Present Illness and Precipitating Events: pt with previous diagnosis of depression , anxiety , borderline personality disorder disorder and alcohol abuse pt has been recently discharged from [facility], stated that for the past month she had insurance problems was unable to get her medications, became increasingly depressed started using alcohol, on day she presented to ER she started visualizing her mother and sister feeling she should be with them, pt started having suicidal ideations , her boy friend brought her to ER for help pt reported decreased sleep , low energy felling hopeless and helpless, passive suicidal ideations without a plan on the unit denied current manic or psychotic symptoms Current Medications: Active Medications Generic Name Dose Route Start Last Admin Trade Name Freq PRN Reason Stop Dose Admin Acetaminophen 650 mg 10/22/17 02:05 Tylenol 325mg Tab PO Q4 PRN pain level 4-7 Al Hydrox/Mg Hydrox/Simethicone 30 ml 10/22/17 02:05 10/22/17 09:54 Maalox Plus 30 Ml PO 30 ml Q4 PRN Administration Dyspepsia Aripiprazole 5 mg 10/22/17 09:00 10/22/17 09:50 Abilify PO 5 mg DAILY SITA Administration Clonazepam 0.25 mg 10/22/17 12:16 Klonopin PO TID PRN Anxiety Diphenhydramine HCl 50 mg 10/22/17 02:05 Benadryl IM Q6 PRN Extrapyramidal S/S Unable PO Diphenhydramine HCl 50 mg 10/22/17 02:05 Benadryl PO Q6 PRN Extrapyramidal Symptoms Fluoxetine HCl 40 mg 10/22/17 09:00 10/22/17 09:51 Prozac PO 40 mg DAILY SITA Administration Haloperidol 5 mg 10/22/17 02:05 Haldol PO Q4 PRN Agitation Haloperidol Lactate 5 mg 10/22/17 02:05 Haldol IM Q4 PRN Agitation, Unable to Take PO Hydroxyzine Pamoate 50 mg 10/22/17 02:12 Vistaril PO Q8 PRN Anxiety Lorazepam 2 mg 10/22/17 02:05 Ativan IM Q4 PRN Anxiety/Agitation,Unable PO Magnesium Hydroxide 30 ml 10/22/17 02:05 Milk Of Magnesia PO HS PRN Constipation Trazodone HCl 50 mg 10/22/17 02:10 Desyrel PO HS PRN Insomnia Past Psychiatric History - Past Psychiatric History Previous Treatment History: Inpatient Explanation of prior treatment: multiple inpatient psychiatric hospitalizations History of ETOH/Drug Use: hx of alcohol and benzodiazepine abuse Pertinent Medical Hx (Current Medical&Sleep Prob, Allergies): Allergies Allergy/AdvReac Type Severity Reaction Status Date / Time chocolate flavor Allergy Intermediate SWELLING Verified 08/28/17 01:13 Iodine and Iodide Containing Allergy Intermediate RASH Verified 08/28/17 01:13 Produc shellfish derived Allergy Intermediate RASH Verified 08/28/17 01:13 STRAWBERRIES AdvReac Intermediate SWELLING Uncoded 08/28/17 01:13 Atenolol [Tenormin] 25 mg PO DAILY 12/26/16 Celecoxib [Celebrex] 200 mg PO DAILY 12/26/16 Escitalopram [Lexapro] 20 mg PO DAILY 12/26/16 Lisinopril/Hydrochlorothiazide [Lisinopril-Hydrochlorothiazide 25 mg-20 mg] 1 tab PO DAILY 12/26/16 Cyclobenzaprine [Flexeril] 10 mg PO TID 08/28/17 Losartan/Hydrochlorothiazide [Hyzaar 100-12.5 Tablet] 1 tab PO DAILY 08/28/17 Lovastatin [Altoprev] 20 mg PO HS 08/28/17 Naproxen [Naprosyn] 500 mg PO DAILY 08/28/17 Pregabalin [Lyrica] 50 mg PO BID 08/28/17 Valacyclovir HCl [Valtrex] 1 gm PO DAILY 08/28/17 ARIPiprazole [Abilify] 5 mg PO DAILY 30 Days #30 tab 09/03/17 Atenolol [Tenormin] 25 mg PO DAILY tab 09/03/17 FLUoxetine [Prozac] 20 mg PO DAILY 30 Days #60 cap 09/03/17 Losartan [Cozaar] 100 mg PO DAILY tab 09/03/17 guaiFENesin [Robitussin] 100 mg PO Q6 PRN udc 09/03/17 hydrOXYzine Pamoate [Vistaril] 50 mg PO HS PRN 30 Days #30 cap 09/03/17 hydroCHLOROthiazide [Hydrodiuril] 25 mg PO DAILY tab 09/03/17 traZODone [Desyrel] 50 mg PO HS 30 Days #30 tab 09/03/17 Mental Status Examination - Personal Presentation Personal Presentation: Looks stated age - Affect Affect: Depressed - Motor Activity Motor Activity: Psychomotor Retardation - Reliability in Providing Information Reliability in Providing Information: Poor, due to altered mood - Speech Speech: Relevant - Mood Mood: Depressed, Anxious - Formal Thought Process Formal Thought Process: Circumstantial - Hallucinations/Delusions Additional comments: pt denied perceptual disturbances, non elicited - Obsessions/Compulsions Obsessions: No Compulsions: No - Cognitive Functions Orientation: Person, Place, Situation Sensorium: Alert Abstract Thinking: [place] Estimate of Intelligence: Average Judgement: Imparied, as evidence by: Poor judgement, Imparied, as evidence by: Lack of insight into illness Memory: Recent intact, as evidence by: Ability to recall events of the day - Risk Risk: Suicidal, Diminished functioning - Strength & Assets Inventory Strength & Assets Inventory: Family support - Limitations Additional comments: insurance problems DSM 5 DX - DSM 5 DSM 5 Diagnosis: major depresiion recurrent borderline personality disorder - Recommended/Plan of Treatment Treatment Recommendations and Plan of Treatment: start prozac and alexi cadet prn for anxiety CBT GROUP and supportive therapy Projected ELOS: 7 days Prognosis: guarded Discharge Plan and Discharge Criteria: pt mood stable
--- NOTE | 2017-10-22 15:43 | CP.PCM.CON ---
<Saundra Laureano - Last Filed: 10/22/17 15:51> History of Present Illness - History of Present Illness History of Present Illness: 52 year old female patient with PMHx of HTN, hyperlipidemia was seen and evaluated at bedside in psych today. Patient reports that she came to the hospital because she had a nervous breakdown which led her to start drinking alcohol with no control. Patient reports that about 2 weeks ago she fell down and hurt her left arm. Patient reports that she is currently having shoulder pain and is having hard time moving her arm at times. Patient states that her pain is about the same and has not increased or decreased. 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 She reports that she sees a doctor in [facility] regarding to this condition. She reports that she had tumor removal with the same doctor who is managing it as an outpatient. Patient states that she last saw her in Oct 2016 when she had a PET scan done. Patient reports that she was asked to follow up as an outpatient every 3 months but has not been doing so since Oct 2016. Patient reports of losing approx. 3 lbs over the past month and has appetite changes. Patient denies of any bleeding or dark tarry stool. Patient denies of any recent F/N/V/C/SOB/CP/headache/diarrhea/ constipation. Denies of having any new complains at this time. PMHx: HTN, Hyperlipidemia PSHx: B/L Hip replacement (2010 and 2011), Tumor resection from rectum ( September 2016) Allergies: Chocolate, Selfish SHx: Agrees to EtOH use, denies of smoking or illicit drug usage FHx: HTN and colon cancer on mother's side Review of Systems - Constitutional Constitutional: As Per HPI Past Patient History - Infectious Disease Hx of Infectious Diseases: None - Past Medical History & Family History Past Medical History?: Yes - Past Social History Alcohol: Social Drugs: Denies - CARDIAC Hx Cardiac Disorders: No Hx Hypercholesterolemia: Yes Hx Hypertension: Yes - PULMONARY Hx Respiratory Disorders: No Hx Tuberculosis: No - NEUROLOGICAL Hx Neurological Disorder: No HX Cerebrovascular Accident: No Hx Seizures: No - HEENT Hx HEENT Problems: No - RENAL Hx Chronic Kidney Disease: No - ENDOCRINE/METABOLIC Hx Endocrine Disorders: No - HEMATOLOGICAL/ONCOLOGICAL Hx Blood Disorders: No Hx Cancer: No Hx Human Immunodeficiency Virus (HIV): No - INTEGUMENTARY Hx Dermatological Problems: No - MUSCULOSKELETAL/RHEUMATOLOGICAL Hx Musculoskeletal Disorders: Yes Hx Arthritis: Yes Hx Osteoporosis: No - GASTROINTESTINAL Hx Gastrointestinal Disorders: No - GENITOURINARY/GYNECOLOGICAL Hx Genitourinary Disorders: No Hx Sexually Transmitted Disorders: No - PSYCHIATRIC Hx Substance Use: No - SURGICAL HISTORY Hx Surgeries: Yes Other/Comment: R and L hip surgery, 2010 and 2011. Left falopian tube removal in 2004 for ectopic . removal of rectal tumor 2016 - ANESTHESIA Hx Anesthesia: Yes Hx Anesthesia Reactions: No Hx Malignant Hyperthermia: No Meds Allergies/Adverse Reactions: Allergies Allergy/AdvReac Type Severity Reaction Status Date / Time chocolate flavor Allergy Intermediate SWELLING Verified 08/28/17 01:13 Iodine and Iodide Containing Allergy Intermediate RASH Verified 08/28/17 01:13 Produc shellfish derived Allergy Intermediate RASH Verified 08/28/17 01:13 STRAWBERRIES AdvReac Intermediate SWELLING Uncoded 08/28/17 01:13 - Medications Medications: Current Medications Acetaminophen (Tylenol 325mg Tab) 650 mg PO Q4 PRN PRN Reason: pain level 4-7 Al Hydrox/Mg Hydrox/Simethicone (Maalox Plus 30 Ml) 30 ml PO Q4 PRN PRN Reason: Dyspepsia Last Admin: 10/22/17 09:54 Dose: 30 ml Aripiprazole (Abilify) 5 mg PO DAILY [facility] Last Admin: 10/22/17 09:50 Dose: 5 mg Clonazepam (Klonopin) 0.25 mg PO TID PRN PRN Reason: Anxiety Diphenhydramine HCl (Benadryl) 50 mg IM Q6 PRN PRN Reason: Extrapyramidal S/S Unable PO Diphenhydramine HCl (Benadryl) 50 mg PO Q6 PRN PRN Reason: Extrapyramidal Symptoms Fluoxetine HCl (Prozac) 40 mg PO DAILY [facility] Last Admin: 10/22/17 09:51 Dose: 40 mg Haloperidol (Haldol) 5 mg PO Q4 PRN PRN Reason: Agitation Haloperidol Lactate (Haldol) 5 mg IM Q4 PRN PRN Reason: Agitation, Unable to Take PO Hydroxyzine Pamoate (Vistaril) 50 mg PO Q8 PRN PRN Reason: Anxiety Lorazepam (Ativan) 2 mg IM Q4 PRN PRN Reason: Anxiety/Agitation,Unable PO Magnesium Hydroxide (Milk Of Magnesia) 30 ml PO HS PRN PRN Reason: Constipation Trazodone HCl (Desyrel) 50 mg PO HS PRN PRN Reason: Insomnia Physical Exam - Constitutional Appears: Well, Non-toxic, No Acute Distress - Head Exam Head Exam: ATRAUMATIC - Eye Exam Eye Exam: Normal appearance - ENT Exam ENT Exam: Normal Exam - Neck Exam Neck exam: Positive for: Full Rom, Normal Inspection - Respiratory Exam Respiratory Exam: Clear to Auscultation Bilateral, NORMAL BREATHING PATTERN. absent: Rales, Rhonchi, Wheezes - Cardiovascular Exam Cardiovascular Exam: REGULAR RHYTHM, +S1, +S2. absent: Bradycardia, Tachycardia - GI/Abdominal Exam GI & Abdominal Exam: Normal Bowel Sounds, Soft - Rectal Exam Rectal Exam: Deferred - Extremities Exam Extremities exam: Positive for: normal capillary refill, normal inspection, tenderness, pedal pulses present. Negative for: calf tenderness, pedal edema - Back Exam Back exam: FULL ROM, NORMAL INSPECTION - Neurological Exam Neurological exam: Alert, Oriented x3 - Psychiatric Exam Psychiatric exam: Normal Affect, Normal Mood - Skin Skin Exam: Abrasion (Abrasion present on the anterior right knee secondary to fall), Intact, Normal Color, Warm Results - Vital Signs Recent Vital Signs: Last Vital Signs Temp 98.2 F 10/22/17 00:56 Pulse 88 10/22/17 02:23 Resp 18 10/22/17 02:23 BP 140/78 10/22/17 00:56 Pulse Ox 97 10/22/17 00:56 - Labs Result Diagrams: 10/21/17 22:09 10/21/17 22:09 Labs: Laboratory Results - last 24 hr 10/21/17 10/21/17 10/21/17 22:09 22:09 22:09 WBC 12.0 H RBC 3.87 Hgb 12.4 Hct 36.7 MCV 94.9 MCH 31.9 H MCHC 33.7 RDW 15.1 H Plt Count 434 H MPV 6.8 L Neut % (Auto) 69.7 Lymph % (Auto) 26.2 [place] % (Auto) 2.6 Eos % (Auto) 0.8 Baso % (Auto) 0.7 Neut # 8.4 H Lymph # 3.1 [place] # 0.3 Eos # 0.1 Baso # 0.1 Sodium 139 Potassium 3.8 Chloride 99 Carbon Dioxide 29 Anion Gap 15 BUN 9 Creatinine 0.7 Est GFR ( Amer) > 60 Est GFR (Non-Af Amer) > 60 Random Glucose 99 Hemoglobin A1c Calcium 9.3 Triglycerides Cholesterol LDL Cholesterol Direct HDL Cholesterol Thyroxine (T4) TSH 3rd Generation Salicylates < 1.0 Urine Opiates Screen Urine Methadone Screen Acetaminophen < 10.0 L Ur Barbiturates Screen Ur Phencyclidine Scrn Ur Amphetamines Screen U Benzodiazepines Scrn U Oth Cocaine Metabols U Cannabinoids Screen Alcohol, Quantitative 190 H 10/21/17 10/22/17 10/22/17 22:39 06:55 07:00 WBC RBC Hgb Hct MCV MCH MCHC RDW Plt Count MPV Neut % (Auto) Lymph % (Auto) [place] % (Auto) Eos % (Auto) Baso % (Auto) Neut # Lymph # [place] # Eos # Baso # Sodium Potassium Chloride Carbon Dioxide Anion Gap BUN Creatinine Est GFR ( Amer) Est GFR (Non-Af Amer) Random Glucose Hemoglobin A1c 6.1 Calcium Triglycerides 292 H Cholesterol 170 LDL Cholesterol Direct 73 HDL Cholesterol 55 Thyroxine (T4) 10.5 TSH 3rd Generation 1.25 Salicylates Urine Opiates Screen Negative Urine Methadone Screen Negative Acetaminophen Ur Barbiturates Screen Negative Ur Phencyclidine Scrn Negative Ur Amphetamines Screen Negative U Benzodiazepines Scrn Negative U Oth Cocaine Metabols Negative U Cannabinoids Screen Negative Alcohol, Quantitative Assessment & Plan - Assessment and Plan (Free Text) Assessment: 52 year old female patient with PMHx of HTN, hyperlipidemia was seen and evaluated in psych Plan: 1). Right arm pain/knee pain - past x-rays reviewed, no new findings on physical exam - Cont. cyclobenzaprine, diclofenac gel, and oxycodone 2). HTN - cont. home meds 3). Hyperlipidemia - cont. statin 4). Gastritis - cont. prazole 5). major depresiion recurrent, borderline personality disorder - management as per psych - Date & Time Date: 10/22/17 Time: 16:11 <Oscar Brooke - Last Filed: 10/22/17 16:14> Meds - Medications Medications: Current Medications Acetaminophen (Tylenol 325mg Tab) 650 mg PO Q4 PRN PRN Reason: pain level 4-7 Al Hydrox/Mg Hydrox/Simethicone (Maalox Plus 30 Ml) 30 ml PO Q4 PRN PRN Reason: Dyspepsia Last Admin: 10/22/17 09:54 Dose: 30 ml Aripiprazole (Abilify) 5 mg PO DAILY [facility] Last Admin: 10/22/17 09:50 Dose: 5 mg Clonazepam (Klonopin) 0.25 mg PO TID PRN PRN Reason: Anxiety Diphenhydramine HCl (Benadryl) 50 mg IM Q6 PRN PRN Reason: Extrapyramidal S/S Unable PO Diphenhydramine HCl (Benadryl) 50 mg PO Q6 PRN PRN Reason: Extrapyramidal Symptoms Fluoxetine HCl (Prozac) 40 mg PO DAILY [facility] Last Admin: 10/22/17 09:51 Dose: 40 mg Haloperidol (Haldol) 5 mg PO Q4 PRN PRN Reason: Agitation Haloperidol Lactate (Haldol) 5 mg IM Q4 PRN PRN Reason: Agitation, Unable to Take PO Hydroxyzine Pamoate (Vistaril) 50 mg PO Q8 PRN PRN Reason: Anxiety Lorazepam (Ativan) 2 mg IM Q4 PRN PRN Reason: Anxiety/Agitation,Unable PO Magnesium Hydroxide (Milk Of Magnesia) 30 ml PO HS PRN PRN Reason: Constipation Trazodone HCl (Desyrel) 50 mg PO HS PRN PRN Reason: Insomnia Results - Vital Signs Recent Vital Signs: Last Vital Signs Temp 98.2 F 10/22/17 00:56 Pulse 88 10/22/17 02:23 Resp 18 10/22/17 02:23 BP 140/78 10/22/17 00:56 Pulse Ox 97 10/22/17 00:56 - Labs Result Diagrams: 10/21/17 22:09 10/21/17 22:09 Labs: Laboratory Results - last 24 hr 10/21/17 10/21/17 10/21/17 22:09 22:09 22:09 WBC 12.0 H RBC 3.87 Hgb 12.4 Hct 36.7 MCV 94.9 MCH 31.9 H MCHC 33.7 RDW 15.1 H Plt Count 434 H MPV 6.8 L Neut % (Auto) 69.7 Lymph % (Auto) 26.2 [place] % (Auto) 2.6 Eos % (Auto) 0.8 Baso % (Auto) 0.7 Neut # 8.4 H Lymph # 3.1 [place] # 0.3 Eos # 0.1 Baso # 0.1 Sodium 139 Potassium 3.8 Chloride 99 Carbon Dioxide 29 Anion Gap 15 BUN 9 Creatinine 0.7 Est GFR ( Amer) > 60 Est GFR (Non-Af Amer) > 60 Random Glucose 99 Hemoglobin A1c Calcium 9.3 Triglycerides Cholesterol LDL Cholesterol Direct HDL Cholesterol Thyroxine (T4) TSH 3rd Generation Salicylates < 1.0 Urine Opiates Screen Urine Methadone Screen Acetaminophen < 10.0 L Ur Barbiturates Screen Ur Phencyclidine Scrn Ur Amphetamines Screen U Benzodiazepines Scrn U Oth Cocaine Metabols U Cannabinoids Screen Alcohol, Quantitative 190 H 10/21/17 10/22/17 10/22/17 22:39 06:55 07:00 WBC RBC Hgb Hct MCV MCH MCHC RDW Plt Count MPV Neut % (Auto) Lymph % (Auto) [place] % (Auto) Eos % (Auto) Baso % (Auto) Neut # Lymph # [place] # Eos # Baso # Sodium Potassium Chloride Carbon Dioxide Anion Gap BUN Creatinine Est GFR ( Amer) Est GFR (Non-Af Amer) Random Glucose Hemoglobin A1c 6.1 Calcium Triglycerides 292 H Cholesterol 170 LDL Cholesterol Direct 73 HDL Cholesterol 55 Thyroxine (T4) 10.5 TSH 3rd Generation 1.25 Salicylates Urine Opiates Screen Negative Urine Methadone Screen Negative Acetaminophen Ur Barbiturates Screen Negative Ur Phencyclidine Scrn Negative Ur Amphetamines Screen Negative U Benzodiazepines Scrn Negative U Oth Cocaine Metabols Negative U Cannabinoids Screen Negative Alcohol, Quantitative
[2017-10-22] MEDS: Pravastatin Sodium 20 MG TAB PO SCH (21:35)
[2017-10-23] MEDS: Naproxen 500 MG TAB PO SCH (09:09)
--- NOTE | 2017-10-23 11:09 | PCM.PYCHPN ---
Psychiatric Progress Note - Psychiatric Progress Note Patient seen today, length of contact: pt seen and evaluated Patient Chief Complaint: pt still feels depressed and still hears voices and voices telling her that she should not be in this world. pt denies side effects to meds and tolerating abilify well. Medication Change: Yes Medical Record Reviewed: Yes Mental Status Examination - Cognitive Function Orientation: Person, Place, Situation Attention: Poor Concentration: Poor Association: WNL Fund of Knowledge: WNL - Mood Mood: Depressed, Anxious - Affect Affect: Depressed - Formal Thought Process Formal Thought Process: Circumstantial - Suicidal Ideation Suicidal Ideation: No - Homicidal Ideation Homicidal Ideation: No Goal/Treatment Plan - Goal/Treatment Plan Progress Toward Problem(s) and Goals/Treatment Plan: will continue to titrate the dose of abilify and prozac to stabilize the depression and psychosis. Disposition plans as per dr nath
[2017-10-23] MEDS: Pravastatin Sodium 20 MG TAB PO SCH (21:06)
[2017-10-24] MEDS: Naproxen 500 MG TAB PO SCH (08:34)
--- NOTE | 2017-10-24 13:07 | PCM.PYCHPN ---
Psychiatric Progress Note - Psychiatric Progress Note Patient seen today, length of contact: pt seen and evaluated Patient Chief Complaint: pt still feels depressed and still hears voices and voices telling her that she should not be in this world. pt denies side effects to meds and tolerating abilify well. pt c/o increase in voices and cant sleep at hs. Medication Change: Yes Medical Record Reviewed: Yes Mental Status Examination - Cognitive Function Orientation: Person, Place, Situation Attention: Poor Concentration: Poor Association: WNL Fund of Knowledge: WNL - Mood Mood: Depressed, Anxious - Affect Affect: Depressed - Formal Thought Process Formal Thought Process: Circumstantial - Suicidal Ideation Suicidal Ideation: No - Homicidal Ideation Homicidal Ideation: No Goal/Treatment Plan - Goal/Treatment Plan Progress Toward Problem(s) and Goals/Treatment Plan: will continue to titrate the dose of abilify to 10 mg daily and continue prozac to stabilize the depression and psychosis. Disposition plans as per dr nath
[2017-10-24] MEDS: Pravastatin Sodium 20 MG TAB PO SCH (21:06)
[2017-10-25] MEDS: Naproxen 500 MG TAB PO SCH (09:26)
--- NOTE | 2017-10-25 13:15 | PCM.PYCHPN ---
Psychiatric Progress Note - Psychiatric Progress Note Patient seen today, length of contact: pt seen and evaluated Patient Chief Complaint: i WANT TO BE WITH MY SISTER, MAYBE i CAN USE THE SHEETS TO GET TO HER Problems Identified/Issues Discussed: PT on evaluation depressed, tearful, reported last night had early insomnia became very distressed and started seeing her sister with her in the room, asking her to join her with her mother, pt reported she contemplated using the sheets to hang herself, pt reported she continues to have active thoughts to end her life as she feels very lonely without her family, pt continues to have non command auditory hallucinations reported feeling anxious ,needs encouragment to attend groups , no reported side effects of medications Medical Problems: multiple inpatient psychiatric hospitalizations DSM 5 Symptoms Update: major depression borderline personality disorder Medication Change: Yes (increase trazdone) Medical Record Reviewed: Yes Mental Status Examination - Cognitive Function Orientation: Person, Place, Situation Attention: Poor Concentration: Poor Association: WNL Fund of Knowledge: WNL - Mood Mood: Depressed, Anxious - Affect Affect: Depressed - Formal Thought Process Formal Thought Process: Circumstantial - Suicidal Ideation Suicidal Ideation: Yes - Homicidal Ideation Homicidal Ideation: No Goal/Treatment Plan - Goal/Treatment Plan Need for Continued Stay: Severe depression anxiety, Discharge may exacerbated symptoms Progress Toward Problem(s) and Goals/Treatment Plan: pt will be placed on 1:1 observation for suicide risk abilify 10mg prozac 40mg increase trazdone to 100mg CBT GROUP and supportive therapy
[2017-10-25] MEDS: Alum-Mag Hydrox-Simethicone Susp (30 mL) PO PRN (14:03)
[2017-10-25] MEDS: Pravastatin Sodium 20 MG TAB PO SCH (21:37)
[2017-10-26] MEDS: Naproxen 500 MG TAB PO SCH (08:52)
--- NOTE | 2017-10-26 13:55 | PCM.PYCHPN ---
Psychiatric Progress Note - Psychiatric Progress Note Patient seen today, length of contact: pt seen and evaluated Patient Chief Complaint: I am feeling better today because I slept well Problems Identified/Issues Discussed: PT on evaluation reported feeling less anxious and less depressed , reported improved sleep, which had positive impact on her mood, pt thought process more organized with clearing off of the auditory hallucinations denied suicidal or homicidal ideations , no reported side effects of medications Medical Problems: multiple inpatient psychiatric hospitalizations DSM 5 Symptoms Update: depression borderline personality disorder Medication Change: No Medical Record Reviewed: Yes Mental Status Examination - Cognitive Function Orientation: Person, Place, Situation Attention: WNL Concentration: WNL Association: WNL Fund of Knowledge: WNL - Mood Mood: Depressed, Anxious - Affect Affect: Constricted, Depressed - Speech Speech: Soft - Formal Thought Process Formal Thought Process: Circumstantial - Suicidal Ideation Suicidal Ideation: No - Homicidal Ideation Homicidal Ideation: No Goal/Treatment Plan - Goal/Treatment Plan Need for Continued Stay: Severe depression anxiety, Discharge may exacerbated symptoms Progress Toward Problem(s) and Goals/Treatment Plan: discontinue 1:1 observation pt at [facility] denied any suicidal ideation or plan abilify 10mg prozac 40mg trazdone to 100mg CBT GROUP and supportive therapy
[2017-10-26] MEDS: Pravastatin Sodium 20 MG TAB PO SCH (21:15)
[2017-10-27] MEDS: Naproxen 500 MG TAB PO SCH (09:28)
--- NOTE | 2017-10-27 13:57 | PCM.PYCHPN ---
Psychiatric Progress Note - Psychiatric Progress Note Patient seen today, length of contact: pt seen and evaluated Patient Chief Complaint: I am less anxious Problems Identified/Issues Discussed: PT on evaluation reported feeling less anxious and less depressed , reported improved sleep, denied any current perceptual disturbances compliant with treatment and attending groups denied suicidal or homicidal ideations , no reported side effects of medications Medical Problems: multiple inpatient psychiatric hospitalizations DSM 5 Symptoms Update: major depression borderline personality disorder Medication Change: No Medical Record Reviewed: Yes Mental Status Examination - Cognitive Function Orientation: Person, Place, Situation Attention: WNL Concentration: WNL Association: WNL Fund of Knowledge: WNL - Mood Mood: Neutral - Affect Affect: Constricted, Depressed - Speech Speech: Appropriate - Formal Thought Process Formal Thought Process: Circumstantial - Suicidal Ideation Suicidal Ideation: No - Homicidal Ideation Homicidal Ideation: No Goal/Treatment Plan - Goal/Treatment Plan Need for Continued Stay: Severe depression anxiety, Discharge may exacerbated symptoms Progress Toward Problem(s) and Goals/Treatment Plan: continue with abilifsavage, prozac and trazdone CBT GROUP and supportive therapy psychiatric social worker supervisor to arrange for follow up outpatient Estimated Date of D/C: 10/29/17
[2017-10-27 17:31] VITALS: RESP 18
[2017-10-27] MEDS: Pravastatin Sodium 20 MG TAB PO SCH (21:05)
[2017-10-28] MEDS: Naproxen 500 MG TAB PO SCH (09:09)
--- NOTE | 2017-10-28 12:53 | PCM.PYCHPN ---
Psychiatric Progress Note - Psychiatric Progress Note Patient seen today, length of contact: pt seen and evaluated Patient Chief Complaint: I am better today Problems Identified/Issues Discussed: PT on evaluation reported better mood, brighter affect, feeling less anxious and less depressed , reported improved sleep, denied any current perceptual disturbances compliant with treatment and attending groups denied suicidal or homicidal ideations , no reported side effects of medications Medical Problems: multiple inpatient psychiatric hospitalizations DSM 5 Symptoms Update: major depression borderline personality disorder Medication Change: No Medical Record Reviewed: Yes Mental Status Examination - Cognitive Function Orientation: Person, Place, Situation Attention: WNL Concentration: WNL Association: WNL Fund of Knowledge: WNL - Mood Mood: Neutral - Affect Affect: Constricted, Depressed - Speech Speech: Appropriate - Formal Thought Process Formal Thought Process: Circumstantial - Suicidal Ideation Suicidal Ideation: No - Homicidal Ideation Homicidal Ideation: No Goal/Treatment Plan - Goal/Treatment Plan Need for Continued Stay: Severe depression anxiety, Discharge may exacerbated symptoms Progress Toward Problem(s) and Goals/Treatment Plan: continue with alexi, juvencio and trazdone CBT GROUP and supportive therapy social media intern to arrange for follow up outpatient Estimated Date of D/C: 10/29/17
[2017-10-28] MEDS: Pravastatin Sodium 20 MG TAB PO SCH (21:12)
[2017-10-29 09:33] VITALS: BP 116/80; PULSE 89; TEMP 96.4
[2017-10-29] MEDS: Naproxen 500 MG TAB PO SCH (09:41)
--- NOTE | 2017-10-29 13:56 | PCM.PYCHDC ---
Mental Status Examination - Mental Status Examination Orientation: Person, Place, Situation Memory: Intact Mood: Neutral Affect: Broad Speech: Appropriate Attention: WNL Concentration: WNL Association: WNL Fund of Knowledge: WNL Formal Thought Process: No Impairment Description of patient's judgement and insight: fair insight and judgment Psychotic Thoughts and Behaviors: pt denied any current psychotic symptoms and non elicited Suicidal Ideation: No Current Homicidal Ideation?: No Discharge Summary - Discharge Note Reason for Hospitalization: pt with previous diagnosis of depression , anxiety , borderline personality disorder disorder and alcohol abuse pt has been recently discharged from [facility], stated that for the past month she had insurance problems was unable to get her medications, became increasingly depressed started using alcohol, on day she presented to ER she started visualizing her mother and sister feeling she should be with them, pt started having suicidal ideations , her boy friend brought her to ER for help pt reported decreased sleep , low energy felling hopeless and helpless, passive suicidal ideations without a plan on the unit denied current manic or psychotic symptoms Consultations:: List each consultation separately and include: 1. Reason for request. 2. Findings. 3. Follow-up Summary of Hospital Course include:: 1. Description of specific treatment plan utilized for patients during their course of treatmen. 2. Summarize the time- course for resolution of acute symptoms and/or regressed behaviors. 3. Describe issues identified and worked on during hospitalization. 4. Describe medication utilized. 5. Describe medical problems identified and treated. 6. Reassessment of suicide risk Summary of Hospital Course: pt on admission was started on abilify 5mg, it was increased to 10mg trazodone 100mg for insomnia and prozac 40mg for depression Group, CBT and supportive therapy was provided no reported side effects of medications pt participated in treatment, attended groups, on discharge mental status was stable, pt denied any current suicidal or homicidal ideations denied perceptual disturbances, follow up arranged with [facility] partial program - Diagnosis (1) Depression Current Visit: Yes Status: Acute - Final Diagnosis (DSM 5) Condition upon Discharge: FAIR Disposition: HOME/ ROUTINE Follow-up Treatment Plan: continue with abilify, prozac and trazdone CBT GROUP and supportive therapy nursing home social worker to arrange for follow up outpatient Prescriptions/Medication Reconciliation: ARIPiprazole [Abilify] 10 mg PO DAILY 30 Days #30 tab FLUoxetine [Prozac] 40 mg PO DAILY 30 Days #60 cap hydrOXYzine Pamoate [Vistaril] 50 mg PO Q8 PRN 30 Days #90 cap PRN Reason: Anxiety traZODone [Desyrel] 100 mg PO HS 30 Days #30 tab - Antipsychotic Medications Pt discharged on 2 or more routine antipsychotic medications: No
== END 2017-10-29 14:35 | disposition home or self-care (01) | DRG 883 ==
LOC: H.ER 20:14 → H.ERHOLD 22:59 → H.PSYCH 10-22 01:28
PROVIDERS: ADMIT Psychiatry & Neurology Psychiatry; ATTEND Psychiatry & Neurology Psychiatry
PROC: GZHZZZZ Group Psychotherapy (ICD-10-PCS; principal; 2017-10-21)
PROC: GZ51ZZZ Individual Psychotherapy, Behavioral (ICD-10-PCS; 2017-10-21)
DX: F60.3 Borderline personality disorder (principal); F20.9 Schizophrenia, unspecified; R45.851 Suicidal ideations; G47.00 Insomnia, unspecified; F31.9 Bipolar disorder, unspecified; I12.9 Hypertensive chronic kidney disease with stage 1 through stage 4 chronic kidney disease, or unspecified chronic kidney disease; N18.9 Chronic kidney disease, unspecified; Z79.899 Other long term (current) drug therapy; Z96.643 Presence of artificial hip joint, bilateral; F13.10 Sedative, hypnotic or anxiolytic abuse, uncomplicated; F41.9 Anxiety disorder, unspecified; M19.90 Unspecified osteoarthritis, unspecified site; E78.00 Pure hypercholesterolemia, unspecified; E78.5 Hyperlipidemia, unspecified; F10.129 Alcohol abuse with intoxication, unspecified

== ENCOUNTER 2017-12-12 16:13 | Emergency (ER) | payer MEDICARE, OTHER ==
[2017-12-12 16:13] VITALS: BMI 35.0
[2017-12-12 16:25] VITALS: BP 163/99; PULSE 90; RESP 16; TEMP 98; O2SAT 100
--- NOTE | 2017-12-12 16:48 | ED PDOC ---
Upper Extremity Pain/Injury Time Seen by Provider: 12/12/17 16:35 Chief Complaint (Nursing): Upper Extremity Problem/Injury Chief Complaint (Provider): Upper Extremity Pain History Per: Patient History/Exam Limitations: no limitations Onset/Duration Of Symptoms: Persistent Current Symptoms Are (Timing): Still Present Additional Complaint(s): 52 year old female presents to ED with complaints of persistent right shoulder pain x1 month status post trip and fall. Patient notes that she is currently being treated for pain by her PCP and will be getting surgery in the future. Reports that prescribed Flexeril and Celebrex do not alleviate symptoms. Patient confirms she had an MRI on 12/03/2017. Notes pain keeps her from sleeping. PCP: Myles Ramon Jr. Past Medical History Reviewed: Historical Data, Nursing Documentation, Vital Signs Vital Signs: Last Vital Signs Temp 98.0 F 12/12/17 16:22 Pulse 90 12/12/17 16:22 Resp 16 12/12/17 16:22 BP 163/99 H 12/12/17 16:22 Pulse Ox 100 12/12/17 16:22 - Medical History PMH: Anxiety, Arthritis, Bipolar Disorder, Depression, Deep Vein Thrombosis, HTN , Hypercholesterolemia, Hyperlipidemia, Schizophrenia Denies: Colonic Polyps, Diabetes, Hepatitis, HIV, Osteoporosis, Chronic Kidney Disease, Seizures, Sexually Transmitted Disease - Surgical History Surgical History: Endoscopy - Family History Family History: States: Unknown Family Hx - Social History Drugs: Denies - Immunization History Hx Tetanus Toxoid Vaccination: Yes (2013) Hx Influenza Vaccination: Yes Hx Pneumococcal Vaccination: Yes - Home Medications Home Medications: Ambulatory Orders Medication Instructions Recorded Atenolol [Tenormin] 25 mg PO DAILY 12/26/16 Celecoxib [Celebrex] 200 mg PO DAILY 12/26/16 Lisinopril/Hydrochlorothiazide 1 tab PO DAILY 12/26/16 [Lisinopril-Hctz 20-25 mg Tab] Cyclobenzaprine [Flexeril] 10 mg PO TID 08/28/17 Losartan/Hydrochlorothiazide 1 tab PO DAILY 08/28/17 [Hyzaar 100-12.5 Tablet] Lovastatin [Altoprev] 20 mg PO HS 08/28/17 Naproxen [Naprosyn] 500 mg PO DAILY 08/28/17 Pregabalin [Lyrica] 50 mg PO BID 08/28/17 Valacyclovir HCl [Valtrex] 1 gm PO DAILY 08/28/17 Atenolol [Tenormin] 25 mg PO DAILY tab 09/03/17 Losartan [Cozaar] 100 mg PO DAILY tab 09/03/17 guaiFENesin [Robitussin] 100 mg PO Q6 PRN udc 09/03/17 hydroCHLOROthiazide [Hydrodiuril] 25 mg PO DAILY tab 09/03/17 ARIPiprazole [Abilify] 10 mg PO DAILY 30 Days #30 tab 10/29/17 FLUoxetine [Prozac] 40 mg PO DAILY 30 Days #60 cap 10/29/17 Loratadine [Claritin] 10 mg PO DAILY tab 10/29/17 Pravastatin Sodium [Pravachol] 20 mg PO HS tab 10/29/17 Pregabalin [Lyrica] 50 mg PO BID cap 10/29/17 hydrOXYzine Pamoate [Vistaril] 50 mg PO Q8 PRN 30 Days #90 cap 10/29/17 hydroCHLOROthiazide [Microzide] 12.5 mg PO DAILY cap 10/29/17 traZODone [Desyrel] 100 mg PO HS 30 Days #30 tab 10/29/17 Acetaminophen with Codeine 2 each PO QID #20 tablet 12/12/17 [Tylenol with Codeine #3 Tablet] - Allergies Allergies/Adverse Reactions: Allergies Allergy/AdvReac Type Severity Reaction Status Date / Time chocolate flavor Allergy Intermediate SWELLING Verified 12/12/17 16:15 Iodine and Iodide Containing Allergy Intermediate RASH Verified 12/12/17 16:15 Produc shellfish derived Allergy Intermediate RASH Verified 12/12/17 16:15 STRAWBERRIES AdvReac Intermediate SWELLING Uncoded 12/12/17 16:15 Review of Systems ROS Statement: Except As Marked, All Systems Reviewed And Found Negative Musculoskeletal: Positive for: Shoulder Pain (right shoulder pain) Physical Exam - Reviewed Nursing Documentation Reviewed: Yes Vital Signs Reviewed: Yes - Physical Exam Appears: Positive for: Non-toxic, Uncomfortable Extremity: Positive for: Other (mild numbness/tingling to right shoulder extending to right wrist). Negative for: Normal ROM (limited ROM actively/ passively to right shoulder. Left shoulder asymptomatic), Deformity - ECG O2 Sat by Pulse Oximetry: 100 (RA) Pulse Ox Interpretation: Normal Medical Decision Making Medical Decision Makin Initial impression: full thickness tear of supraspinatus tendon MRI RT SHOULDER - 12/03/2017 Impression: full thickness tear of supraspinatus tendon with medial retraction of the free tendon edge to the level of the medal aspect of the humeral head. there is atrophy of the supraspinatus muscle. Scribe Attestation: Documented by Sofy Moore, acting as a scribe for Aditya Jacobo PA-C. Provider Scribe Attestation: All medical record entries made by the Scribe were at my direction and personally dictated by me. I have reviewed the chart and agree that the record accurately reflects my personal performance of the history, physical exam, medical decision making, and the department course for this patient. I have also personally directed, reviewed, and agree with the discharge instructions and disposition. Disposition - Clinical Impression Clinical Impression: Shoulder injury, Shoulder pain, Tendon laceration - Disposition Condition: GOOD Additional Instructions: follow up in 1-2 days with your orthopedic surgeon to discuss your MRI findings and develop a treatment plan Prescriptions: Acetaminophen with Codeine [Tylenol with Codeine #3 Tablet] 2 each PO QID #20 tablet Instructions: Tendon Laceration, Tendon Laceration (DC) Forms: [employer] ([employer])
[2017-12-12] MEDS ORDERED: Acetaminophen-Codeine 300/30 mg Tab ONE (17:14)
[2017-12-12] MEDS ORDERED: Acetaminophen-Codeine 300/30 mg Tab PO STA (17:52)
== END 2017-12-12 17:56 | disposition home or self-care (01) ==
LOC: H.ER 16:13
DX: S46.811A Strain of other muscles, fascia and tendons at shoulder and upper arm level, right arm, initial encounter (principal); W01.0XXA Fall on same level from slipping, tripping and stumbling without subsequent striking against object, initial encounter; Y92.9 Unspecified place or not applicable; M25.511 Pain in right shoulder

== ENCOUNTER 2018-02-02 20:17 | Emergency (ER) | payer MEDICARE, OTHER ==
[2018-02-02 20:17] VITALS: BMI 35.0
[2018-02-02] MEDS ORDERED: Sodium Chloride 0.9% 1,000 ML IV STA (20:47)
--- NOTE | 2018-02-02 20:49 | ED PDOC ---
HPI: General Adult Time Seen by Provider: 02/02/18 20:27 Chief Complaint (Nursing): Weakness/Neurological Deficit Chief Complaint (Provider): fever History Per: Patient History/Exam Limitations: no limitations Onset/Duration Of Symptoms: Days (1) Current Symptoms Are (Timing): Still Present Additional Complaint(s): 52 y/o female presents with fever x 1 day. Associated bodyaches, chills x 4 days. Patient states she had arthroscopic surgery on right shoulder on 01/19 for tendon repair, reports falling last week and landing on right shoulder and was evaluated at [facility] and had normal shoulder xray's. Patient states she hurt her right leg at that time but did not notice the bruising until after being discharged from the hospital and is concerned due to past hip surgery. Denies headache, dizziness, nasal congestion/discharge, cough, chest pain, shortness of breath, palpitations, abdominal pain, changes in bowel movements, urinary symptoms. Past Medical History Reviewed: Historical Data, Nursing Documentation, Vital Signs Vital Signs: Last Vital Signs Temp 98.8 F 02/02/18 23:34 Pulse 91 H 02/02/18 23:34 Resp 18 02/02/18 23:34 BP 112/61 02/02/18 23:34 Pulse Ox 95 02/02/18 23:37 - Medical History PMH: Anxiety, Arthritis, Bipolar Disorder, Depression, Deep Vein Thrombosis, HTN , Hypercholesterolemia, Hyperlipidemia, Schizophrenia Denies: Colonic Polyps, Diabetes, Hepatitis, HIV, Osteoporosis, Chronic Kidney Disease, Seizures, Sexually Transmitted Disease - Surgical History Surgical History: Endoscopy - Family History Family History: States: Unknown Family Hx - Immunization History Hx Tetanus Toxoid Vaccination: Yes (2013) Hx Influenza Vaccination: Yes Hx Pneumococcal Vaccination: Yes - Home Medications Home Medications: Ambulatory Orders Medication Instructions Recorded Atenolol [Tenormin] 25 mg PO DAILY 12/26/16 Celecoxib [Celebrex] 200 mg PO DAILY 12/26/16 Lisinopril/Hydrochlorothiazide 1 tab PO DAILY 12/26/16 [Lisinopril-Hctz 20-25 mg Tab] Cyclobenzaprine [Flexeril] 10 mg PO TID 08/28/17 Losartan/Hydrochlorothiazide 1 tab PO DAILY 08/28/17 [Hyzaar 100-12.5 Tablet] Lovastatin [Altoprev] 20 mg PO HS 08/28/17 Naproxen [Naprosyn] 500 mg PO DAILY 08/28/17 Pregabalin [Lyrica] 50 mg PO BID 08/28/17 Valacyclovir HCl [Valtrex] 1 gm PO DAILY 08/28/17 Atenolol [Tenormin] 25 mg PO DAILY tab 09/03/17 Losartan [Cozaar] 100 mg PO DAILY tab 09/03/17 guaiFENesin [Robitussin] 100 mg PO Q6 PRN udc 09/03/17 hydroCHLOROthiazide [Hydrodiuril] 25 mg PO DAILY tab 09/03/17 ARIPiprazole [Abilify] 10 mg PO DAILY 30 Days #30 tab 10/29/17 FLUoxetine [Prozac] 40 mg PO DAILY 30 Days #60 cap 10/29/17 Loratadine [Claritin] 10 mg PO DAILY tab 10/29/17 Pravastatin Sodium [Pravachol] 20 mg PO HS tab 10/29/17 Pregabalin [Lyrica] 50 mg PO BID cap 10/29/17 hydrOXYzine Pamoate [Vistaril] 50 mg PO Q8 PRN 30 Days #90 cap 10/29/17 hydroCHLOROthiazide [Microzide] 12.5 mg PO DAILY cap 10/29/17 traZODone [Desyrel] 100 mg PO HS 30 Days #30 tab 10/29/17 Acetaminophen with Codeine 2 each PO QID #20 tablet 12/12/17 [Tylenol with Codeine #3 Tablet] Ibuprofen [Motrin Tab] 1 tab PO Q6 PRN #20 tab 02/02/18 - Allergies Allergies/Adverse Reactions: Allergies Allergy/AdvReac Type Severity Reaction Status Date / Time chocolate flavor Allergy Intermediate SWELLING Verified 02/02/18 20:23 Iodine and Iodide Containing Allergy Intermediate RASH Verified 02/02/18 20:23 Produc shellfish derived Allergy Intermediate RASH Verified 02/02/18 20:23 STRAWBERRIES AdvReac Intermediate SWELLING Uncoded 02/02/18 20:23 Review of Systems ROS Statement: Except As Marked, All Systems Reviewed And Found Negative Constitutional: Positive for: Fever, Chills Musculoskeletal: Positive for: Shoulder Pain, Leg Pain Physical Exam - Reviewed Nursing Documentation Reviewed: Yes Vital Signs Reviewed: Yes - Physical Exam Appears: Positive for: Well, Non-toxic, Uncomfortable Head Exam: Positive for: ATRAUMATIC, NORMAL INSPECTION, NORMOCEPHALIC Skin: Positive for: Normal Color Eye Exam: Positive for: Normal appearance ENT: Positive for: Normal ENT Inspection Cardiovascular/Chest: Positive for: Regular Rate, Rhythm Respiratory: Positive for: Normal Breath Sounds Gastrointestinal/Abdominal: Positive for: Normal Exam Back: Positive for: Normal Inspection Extremity: Positive for: Tenderness (right shoulder tenderness. surgical incision sites healing; no drainage, surrounding erythema/warmth/fluctuance noted. right lateral thigh ecchymosis with tenderness extending to hip. FROM. Distal NV, motor intact). Negative for: Calf Tenderness Neurologic/Psych: Positive for: Alert, Oriented - Laboratory Results Result Diagrams: 02/02/18 21:21 02/02/18 21:21 - ECG ECG: Positive for: Viewed By Id (reviewed by ED attending) ECG Rhythm: Positive for: Sinus Tachycardia O2 Sat by Pulse Oximetry: 95 Pulse Ox Interpretation: Normal - Radiology X-Ray: Viewed By Me X-Ray Interpretation: No Acute Disease - Other Rad left hip xray X-Ray: Viewed By Id X-Ray Interpretation: no acute findings left femur xray X-Ray: Viewed By Id X-Ray Interpretation: no acute findings - Progress ED Course And Treament: labs, urine, flu, strep, chest xray, right hip/femur xray, ekg, tylenol PO, IV fluids On re-eval, patient states she is feeling better. Vitals improved Patient educated on findings, discharged with rx Ibuprofen. Advised fluids, rest Follow uP PMD 2-3 days. Return precautions given. Disposition - Clinical Impression Clinical Impression: Contusion of right thigh, Fever in adult - Patient ED Disposition Is Patient to be Admitted: No Counseled Patient/Family Regarding: Studies Performed, Diagnosis, Need For Followup, Rx Given - Disposition Disposition: Routine/Home Disposition Time: 23:40 Condition: IMPROVED Prescriptions: Ibuprofen [Motrin Tab] 1 tab PO Q6 PRN #20 tab PRN Reason: Fever >100.4 F Instructions: Taking Care of Bruises, Viral Syndrome (DC) Forms: [employer] (Cam[place]onian)
[2018-02-02 21:25] LABS: BASO # 0.1 K/uL (0.0-0.2); BASO % 0.7 % (0.0-2.0); EOS # 0.1 K/uL (0.0-0.7); LYMPH # 1.9 K/uL (1.0-4.3); LYMPH % 13.3 % (20.0-40.0); MEAN CELL VOLUME 91.2 fl (81.0-99.0); MEAN CORPUSCULAR HEMOGLOBIN 30.5 pg (27.0-31.0); MEAN CORPUSCULAR HGB CONC 33.4 g/dL (33.0-37.0); MEAN PLATELET VOLUME 7.5 fl (7.2-11.7); MONO # 0.6 K/uL (0.0-0.8); MONO % 4.2 % (0.0-10.0); NEUT # 11.7 K/uL (1.8-7.0); NEUT % 80.8 % (50.0-75.0); NRBC % 0.1 % (0.0-0.0); RBC 3.95 Mil/uL (3.80-5.20); RED CELL DISTRIBUTION WIDTH 14.6 % (11.5-14.5); WHITE BLOOD COUNT 14.4 K/uL (4.8-10.8)
[2018-02-02 21:25] LABS: VENOUS BLOOD GAS BASE EXCESS 7.5 mmol/L (0.0-2.0); VENOUS BLOOD GAS PCO2 47 mmHg (40-60); VENOUS BLOOD GAS PO2 20 mm/Hg (30-55); VENOUS BLOOD PH 7.45 (7.32-7.43)
[2018-02-02 21:35] LABS: ALB/GLOB RATIO 1.1 (1.0-2.1); ALT/SGPT 39 U/L (9-52); AST/SGOT 29 U/L (14-36); BLOOD UREA NITROGEN 11 mg/dl (7-17); CALCIUM 9.2 mg/dL (8.4-10.2); GFR AFRICAN-AMERICAN > 60; GFR NON-AFRICAN AMERICAN > 60
[2018-02-02 23:29] LABS: SQUAMOUS EPITHIAL < 1 /hpf (0-5); URINE BILIRUBIN NEGATIVE (NEGATIVE); URINE BLOOD NEGATIVE (NEGATIVE); URINE CLARITY CLOUDY (Clear); URINE COLOR YELLOW (YELLOW); URINE GLUCOSE (UA) NEG (Normal); URINE LEUKOCYTE ESTERASE NEG Leu/uL (Negative); URINE PROTEIN 100 mg/dL (NEGATIVE); URINE UROBILINOGEN 0.2-1.0 mg/dL (0.2-1.0)
[2018-02-02 23:35] VITALS: BP 112/61; PULSE 91; RESP 18; TEMP 98.8
[2018-02-03 00:11] VITALS: O2SAT 99
--- NOTE | 2018-02-03 10:00 | RAD ---
HISTORY: fever COMPARISON: Comparison chest dated 08/28/2017 FINDINGS: LUNGS: Re- demonstrated is a small calcified granuloma right upper lung field. Suspect minor bibasilar atelectasis PLEURA: No significant pleural effusion identified, no pneumothorax apparent. CARDIOVASCULAR: Cardiomegaly. Aorta slightly ectatic and uncoiled. OSSEOUS STRUCTURES: No significant abnormalities. VISUALIZED UPPER ABDOMEN: Normal. OTHER FINDINGS: None. IMPRESSION: Suspect minor bibasilar atelectasis. Stable calcified granuloma right upper lung field
--- NOTE | 2018-02-03 10:39 | RAD ---
PROCEDURE: Right hip HISTORY: Dated 02/02/2018 status post fall with pain COMPARISON: Correlation made with concurrent radiographs of the right femur as well as prior radiographs of the right hip 10/11/2012 TECHNIQUE: AP view of the pelvis and AP/frogleg lateral views of the right hip performed. Re- demonstrated FINDINGS: Re- demonstrated is right total hip replacement. Hardware appears intact without evidence of loosening or infection. Re- demonstrated is a linear lucency along the posteromedial cortex proximal 1/3-1/2 of the right femur unchanged from prior study ; this could represent a vascular groove. No definitive evidence of acute displaced fracture nor dislocation. In situ Copper-T IUD IMPRESSION: Right total hip replacement. Hardware intact without evidence of failure. No definitive evidence of acute displaced fracture nor dislocation. In situ Copper-T IUD.
--- NOTE | 2018-02-03 10:40 | RAD ---
PROCEDURE: Right femur HISTORY: Status post fall COMPARISON: Correlation made with concurrent radiographs of the right hip. Comparison made with prior radiographs of the right hip dated 10/11/2012 TECHNIQUE: AP and lateral views of the right femur performed. FINDINGS: Re- demonstrated is right total hip replacement. Hardware appears intact without evidence of loosening or infection. Re- demonstrated is a linear lucency traversing the posteromedial cortex of the mid proximal 1/3-1/2 of the right femur which was present on the prior exam and appears unchanged ; this could represent vascular groove. The osseous structures intact without evidence of acute displaced fracture nor dislocation. Soft tissues appear grossly unremarkable however multiple on calcified pelvic phleboliths seen overlying the inferior pelvis In situ Copper-T IUD is present. IMPRESSION: Right total hip replacement. Hardware appears intact without evidence of failure. No evidence of acute displaced fracture nor dislocation.
--- NOTE | 2018-02-03 22:50 | CARD ---
APPROVED REPORT EKG Measurement Heart [id number] <Conclusion> Sinus tachycardia Otherwise normal ECG
== END 2018-02-03 00:05 | disposition home or self-care (01) ==
LOC: H.ER 20:17
DX: R50.9 Fever, unspecified (principal); S70.11XA Contusion of right thigh, initial encounter; W19.XXXA Unspecified fall, initial encounter; Y92.89 Other specified places as the place of occurrence of the external cause; F20.9 Schizophrenia, unspecified; E78.00 Pure hypercholesterolemia, unspecified; F31.9 Bipolar disorder, unspecified; F41.9 Anxiety disorder, unspecified; I10 Essential (primary) hypertension; Z86.718 Personal history of other venous thrombosis and embolism; Z96.641 Presence of right artificial hip joint
CPT/HCPCS: 71045; 73502; 73552; 80053; 81003; 82803; 85025; 87040; 87070; 87086; 87430; 87804; 93005; 96374; 99285; J1885; J7040